=== PATIENT | male | born 1980 | race Two or more races ===

== ENCOUNTER 2017-06-05 12:06 | Inpatient (IN) | payer OTHER ==
[~2017-06-05] VITALS: Ht 175.3 cm; Wt 66.0 kg
[2017-06-05 13:33] LABS: Basophils # (auto) 0.1 uL; Basophils % (auto) 0.7 % (0.0-2.0); Eosinophils % (auto) 6.7 % (0.0-7.0); Hematocrit 44.4 % (41.0-53.0); Hemoglobin 15.2 g/dL (13.5-17.5); Lymphocytes # (auto) 1.4 uL; Lymphocytes % (auto) 9.1 % (10.0-50.0); Mean Corpuscular Hemoglobin 30.7 pg (28.0-32.0); Mean Corpuscular Hgb Conc. 34.3 g/dL (32.0-36.0); Mean Corpuscular Volume 89.3 fL (80.0-100.0); Monocytes # (auto) 1.7 uL; Monocytes % (auto) 11.6 % (0.0-12.0); Neutrophils # (auto) 10.7 uL; Neutrophils % (auto) 71.9 % (37.0-80.0); Nucleated Red Blood Cells % 0.1 %; Platelet Count (auto) 409 10^3/uL (140-450); Red Cell Distribution Width 12.5 % (11.6-16.0); White Blood Cell 14.9 10^3/uL (4.4-10.8)
[2017-06-05 13:41] LABS: Albumin 3.7 g/dL (3.4-5.0); Calcium 9.7 mg/dL (8.5-10.1); Potassium 3.9 mmol/L (3.5-5.1)
[2017-06-05 13:49] LABS: Bilirubin, Total 0.6 mg/dL (0.2-1.0); Total Protein 7.7 g/dL (6.4-8.2)
[2017-06-05] MEDS ORDERED: KETOROLAC TROMETH 30 MG/ML 1ML VIAL ONE (13:50)
[2017-06-05] MEDS ORDERED: KETOROLAC TROMETH 30 MG/ML 1ML VIAL IV ONE (14:00)
[2017-06-05] MEDS ORDERED: MORPHINE SULF INJ 2 MG/ML SYRINGE 1ML ONE (14:25)
[2017-06-05 14:35] LABS: Magnesium 2.2 mg/dL (1.6-2.6)
[2017-06-05] MEDS ORDERED: cefTRIAXone 1GM/50ML D5W 50 ML IV ONE (16:00)
[2017-06-05] MEDS ORDERED: ACETAMINOPHEN 500 MG TAB PO PRN (16:15)
[2017-06-05] MEDS ORDERED: MORPHINE SULF INJ 2 MG/ML SYRINGE 1ML IV PRN (16:15)
[2017-06-05] MEDS ORDERED: NITROGLYCERIN 0.4 MG SL TAB SL PRN (16:15)
[2017-06-05] MEDS ORDERED: LORazepam 0.5 MG TAB PO PRN (16:15)
[2017-06-05] MEDS ORDERED: IOHEXOL 300 MG/ML 100ML BOTTLE IJ ONE (16:27)
[2017-06-05 16:47] LABS: Urine RBC None Seen /hpf (0 - 3)
[2017-06-05 16:54] LABS: Urine Bilirubin Negative (Negative); Urine Blood Negative /uL (Negative); Urine Color Yellow (Yellow); Urine Glucose Normal (Normal); Urine Ketone TRACE (Negative); Urine Mucus FEW (None Seen); Urine Nitrite Negative (Negative); Urine Sperm PRESENT /hpf (None Seen); Urine Urobilinogen Normal (Negative); Urine pH 5.5 (5.0-8.0)
[2017-06-05] MEDS: SODIUM CHLORIDE 0.9% 1,000 ML IV SCH ×2 (17:02→22:46)
[2017-06-05] MEDS: FAMOTIDINE (10MG/ML) 2ML VL IV SCH (17:03)
[2017-06-05] MEDS: metroNIDAZOLE 500MG/100ML 100 ML IV SCH (18:00)
[2017-06-05 20:23] LABS: INR 1.03 (0.9-1.15); Prothrombin Time 11.2 sec (9.37-12.3)
[2017-06-05] MEDS: MORPHINE SULFATE 4 MG/ML SYRG IV PRN (20:55)
[2017-06-05] MEDS: HYDROcodone-ACET 5/325MG TAB PO PRN (23:00)
[2017-06-06] MEDS: MORPHINE SULFATE 4 MG/ML SYRG IV PRN ×4 (01:30→17:57)
[2017-06-06] MEDS: FAMOTIDINE (10MG/ML) 2ML VL IV SCH ×2 (04:36→17:57)
[2017-06-06] MEDS: PROMETHAZINE HCL 25 MG/ML 1ML IV PRN ×5 (04:41→21:41)
[2017-06-06 04:47] VITALS: BP 128/64
[2017-06-06] MEDS: SODIUM CHLORIDE 0.9% 1,000 ML IV SCH ×3 (05:26→18:46)
[2017-06-06 05:53] LABS: Albumin 2.8 g/dL (3.4-5.0); BUN/Creatinine Ratio 16.4; Bilirubin, Total 0.8 mg/dL (0.2-1.0); Calcium 9.4 mg/dL (8.5-10.1); Potassium 4.1 mmol/L (3.5-5.1); Total Protein 6.2 g/dL (6.4-8.2)
[2017-06-06] MEDS: metroNIDAZOLE 500MG/100ML 100 ML IV SCH ×5 (05:57→23:58)
[2017-06-06 06:17] LABS: Basophils # (auto) 0.1 uL; Basophils % (auto) 0.5 % (0.0-2.0); CONDITION Y; DEFINITIVE SEE PRINTOUT; Eosinophils # (auto) 0.8 uL; Eosinophils % (auto) 6.3 % (0.0-7.0); Hematocrit 37.2 % (41.0-53.0); Hemoglobin 12.8 g/dL (13.5-17.5); Lymphocytes # (auto) 1.6 uL; Lymphocytes % (auto) 12.2 % (10.0-50.0); Mean Corpuscular Hemoglobin 31.3 pg (28.0-32.0); Mean Corpuscular Hgb Conc. 34.5 g/dL (32.0-36.0); Mean Corpuscular Volume 90.6 fL (80.0-100.0); Mean Platelet Volume 7.8 fL (7.4-10.4); Monocytes # (auto) 1.3 uL; Monocytes % (auto) 9.9 % (0.0-12.0); Neutrophils # (auto) 9.6 uL; Neutrophils % (auto) 71.1 % (37.0-80.0); Platelet Count (auto) 344 10^3/uL (140-450); Red Cell Distribution Width 12.7 % (11.6-16.0); White Blood Cell 13.5 10^3/uL (4.4-10.8)
[2017-06-06] MEDS ORDERED: ACET-1156 PO (06:46)
[2017-06-06] MEDS ORDERED: AZIT250T5 PO (06:58)
[2017-06-06] MEDS ORDERED: IPRA0.03 (06:58)
[2017-06-06] MEDS ORDERED: ALBU0.084 IN (06:58)
[2017-06-06] MEDS ORDERED: RANI-229 PO (06:58)
[2017-06-06] MEDS ORDERED: ALBUAER3 IN (06:58)
[2017-06-06] MEDS ORDERED: MOME200A INH (06:58)
[2017-06-06] MEDS ORDERED: IBUP600T27 PO (06:58)
[2017-06-06] MEDS ORDERED: cefTRIAXone 1GM/50ML D5W 50 ML IV SCH (09:00)
[2017-06-06 09:01] VITALS: BP 115/80
[2017-06-06] MEDS: LEVOFLOXACIN 500MG 100 ML IV SCH (09:04)
[2017-06-06] MEDS ORDERED: GOLYTELY 4L KIT PO ONE (12:00)
[2017-06-06 13:00] VITALS: BP 122/80
[2017-06-06 17:22] VITALS: BP 124/76
[2017-06-06] MEDS: ENOXAPARIN SOD 40 MG/0.4 ML SYRINGE SC SCH (17:58)
[2017-06-06 22:00] VITALS: BP 129/73
[2017-06-07] VITALS (7 sets, daily range): BP systolic 114–136; BP diastolic 71–82
[2017-06-07] MEDS: SODIUM CHLORIDE 0.9% 1,000 ML IV SCH ×4 (01:26→21:41)
[2017-06-07] MEDS: FAMOTIDINE (10MG/ML) 2ML VL IV SCH (04:11)
[2017-06-07] MEDS: MORPHINE SULFATE 4 MG/ML SYRG IV PRN ×4 (04:35→21:35)
[2017-06-07] MEDS: metroNIDAZOLE 500MG/100ML 100 ML IV SCH ×3 (06:01→21:34)
[2017-06-07] MEDS: LEVOFLOXACIN 500MG 100 ML IV SCH (09:17)
[2017-06-07] MEDS: ENOXAPARIN SOD 40 MG/0.4 ML SYRINGE SC SCH (09:18)
[2017-06-07] MEDS ORDERED: MIDAZOLAM HCL 5 MG/ML-1ML VIAL ONE ×2 (09:36→13:21)
[2017-06-07] MEDS ORDERED: diphenhdrAMINE HCL 50 MG/1 ML VL ONE (09:36)
[2017-06-07] MEDS ORDERED: LIDOCAINE VISCOUS 2% 15ML UD ONE (09:36)
[2017-06-07] MEDS ORDERED: SODIUM CHLORIDE LOCK 10 ML ONE (09:36)
[2017-06-07] MEDS ORDERED: fentaNYL CITRATE 100 MCG/2 ML VL ONE ×2 (09:38→13:21)
[2017-06-07] MEDS ORDERED: LIDOCAINE VISCOUS 2% 15ML UD MT ONE (13:30)
[2017-06-07] MEDS ORDERED: MIDAZOLAM HCL 5 MG/ML-1ML VIAL IV ONE ×4 (13:30→13:47)
[2017-06-07] MEDS ORDERED: fentaNYL CITRATE 100 MCG/2 ML VL IV ONE ×4 (13:30→13:47)
[2017-06-07] MEDS ORDERED: diphenhdrAMINE HCL 50 MG/1 ML VL IV ONE (13:31)
[2017-06-07] MEDS: PROMETHAZINE HCL 25 MG/ML 1ML IV PRN ×2 (17:14→21:35)
[2017-06-07 19:26] LABS: Hepatitis B Surface Antibody Negative
[2017-06-07] MEDS: HYDROcodone-ACET 5/325MG TAB PO PRN (19:50)
[2017-06-08] VITALS (7 sets, daily range): BP systolic 118–134; BP diastolic 67–85
[2017-06-08] MEDS: metroNIDAZOLE 500MG/100ML 100 ML IV SCH ×4 (03:26→21:12)
[2017-06-08] MEDS: PROMETHAZINE HCL 25 MG/ML 1ML IV PRN ×4 (04:18→21:30)
[2017-06-08] MEDS: MORPHINE SULFATE 4 MG/ML SYRG IV PRN (04:18)
[2017-06-08] MEDS: SODIUM CHLORIDE 0.9% 1,000 ML IV SCH ×3 (04:40→17:37)
[2017-06-08] MEDS ORDERED: fentaNYL CITRATE 100 MCG/2 ML VL ONE (08:48)
[2017-06-08] MEDS ORDERED: MIDAZOLAM HCL 1MG/1ML-2 ML VIAL ONE (08:48)
[2017-06-08] MEDS: ENOXAPARIN SOD 40 MG/0.4 ML SYRINGE SC SCH (08:49)
[2017-06-08] MEDS ORDERED: LIDOCAINE 2%HCL (LOCAL ANESTH.) INJ 20ML MDV ONE (08:55)
[2017-06-08] MEDS ORDERED: GELATIN 1 SPONGE SIZE 50 TOP ONE (09:22)
[2017-06-08] MEDS: PANTOPRAZOLE 40 MG TAB PO SCH (10:19)
[2017-06-08] MEDS: LEVOFLOXACIN 500MG 100 ML IV SCH (10:19)
[2017-06-08] MEDS: MORPHINE SULF INJ 2 MG/ML SYRINGE 1ML IV PRN ×3 (13:42→21:30)
[2017-06-08] MEDS: DEXAMETHASONE SOD PHOS 4 MG/1ML SDV INJ IV SCH ×2 (15:00→21:30)
[2017-06-09] MEDS: SODIUM CHLORIDE 0.9% 1,000 ML IV SCH ×4 (01:16→20:29)
[2017-06-09] MEDS: metroNIDAZOLE 500MG/100ML 100 ML IV SCH ×4 (02:37→21:06)
[2017-06-09] MEDS: MORPHINE SULF INJ 2 MG/ML SYRINGE 1ML IV PRN ×3 (02:52→20:11)
[2017-06-09] MEDS: PROMETHAZINE HCL 25 MG/ML 1ML IV PRN ×3 (02:53→20:11)
[2017-06-09 05:00] VITALS: BP 120/72
[2017-06-09] MEDS: ENOXAPARIN SOD 40 MG/0.4 ML SYRINGE SC SCH (08:27)
[2017-06-09] MEDS: DEXAMETHASONE SOD PHOS 4 MG/1ML SDV INJ IV SCH ×2 (08:27→21:29)
[2017-06-09] MEDS: PANTOPRAZOLE 40 MG TAB PO SCH (08:27)
[2017-06-09] MEDS: LEVOFLOXACIN 500MG 100 ML IV SCH (08:28)
[2017-06-09 08:30] VITALS: BP 123/85
[2017-06-09 11:40] VITALS: BP 131/70
[2017-06-09 12:07] LABS: PSA Free 0.09 ng/mL; Prostate Specific Antigen 0.5 ng/mL (0.0-4.0)
[2017-06-09 16:15] VITALS: BP 118/72
[2017-06-09] MEDS: TEMAZEPAM 15 MG CAP PO PRN (21:30)
[2017-06-09 21:34] VITALS: BP 134/70
[2017-06-10] VITALS (7 sets, daily range): BP systolic 114–126; BP diastolic 65–74
[2017-06-10] MEDS: SODIUM CHLORIDE 0.9% 1,000 ML IV SCH ×4 (02:51→23:24)
[2017-06-10] MEDS: metroNIDAZOLE 500MG/100ML 100 ML IV SCH ×4 (02:51→21:42)
[2017-06-10] MEDS: MORPHINE SULF INJ 2 MG/ML SYRINGE 1ML IV PRN ×4 (03:03→20:05)
[2017-06-10] MEDS: PROMETHAZINE HCL 25 MG/ML 1ML IV PRN ×4 (03:03→20:05)
[2017-06-10 06:30] LABS: Albumin 2.6 g/dL (3.4-5.0); BUN/Creatinine Ratio 26.8; Calcium 8.8 mg/dL (8.5-10.1); Potassium 4.2 mmol/L (3.5-5.1)
[2017-06-10 06:33] LABS: Bilirubin, Total 0.3 mg/dL (0.2-1.0); Total Protein 6.3 g/dL (6.4-8.2)
[2017-06-10] MEDS: DEXAMETHASONE SOD PHOS 4 MG/1ML SDV INJ IV SCH ×2 (09:41→21:42)
[2017-06-10] MEDS: ENOXAPARIN SOD 40 MG/0.4 ML SYRINGE SC SCH (09:41)
[2017-06-10] MEDS: LEVOFLOXACIN 500MG 100 ML IV SCH (09:41)
[2017-06-10] MEDS: PANTOPRAZOLE 40 MG TAB PO SCH (09:41)
[2017-06-10] MEDS ORDERED: GADOPENTETATE DIMEGLUMINE (10MMOL/20 ML) VIAL IV ONE (12:30)
[2017-06-11] MEDS: PROMETHAZINE HCL 25 MG/ML 1ML IV PRN ×4 (00:04→16:49)
[2017-06-11] MEDS: MORPHINE SULF INJ 2 MG/ML SYRINGE 1ML IV PRN ×4 (00:05→16:50)
[2017-06-11] MEDS: metroNIDAZOLE 500MG/100ML 100 ML IV SCH ×4 (02:42→20:57)
[2017-06-11] MEDS: SODIUM CHLORIDE 0.9% 1,000 ML IV SCH ×4 (05:26→23:20)
[2017-06-11 05:30] VITALS: BP 114/66
[2017-06-11 06:31] LABS: Basophils # (auto) 0 uL; Basophils % (auto) 0.1 % (0.0-2.0); Eosinophils # (auto) 0 uL; Lymphocytes # (auto) 0.7 uL; Lymphocytes % (auto) 3.4 % (10.0-50.0); Mean Corpuscular Hemoglobin 30.5 pg (28.0-32.0); Mean Corpuscular Hgb Conc. 34.3 g/dL (32.0-36.0); Mean Corpuscular Volume 88.8 fL (80.0-100.0); Mean Platelet Volume 7.6 fL (6.9-10.8); Monocytes # (auto) 0.6 uL; Monocytes % (auto) 2.8 % (0.0-12.0); Neutrophils # (auto) 19.5 uL; Neutrophils % (auto) 93.7 % (37.0-80.0); Platelet Count (auto) 388 10^3/uL (140-450); Red Cell Distribution Width 12.7 % (11.8-14.3); White Blood Cell 20.8 10^3/uL (4.4-10.8)
[2017-06-11 06:40] LABS: Potassium 4.2 mmol/L (3.5-5.1)
[2017-06-11 06:42] LABS: BUN/Creatinine Ratio 28.3; Calcium 8.6 mg/dL (8.5-10.1)
[2017-06-11 08:00] VITALS: BP 154/82
[2017-06-11 08:04] VITALS: BP 154/82
[2017-06-11] MEDS: DEXAMETHASONE SOD PHOS 4 MG/1ML SDV INJ IV SCH ×2 (10:07→21:39)
[2017-06-11] MEDS: PANTOPRAZOLE 40 MG TAB PO SCH (10:07)
[2017-06-11] MEDS: LEVOFLOXACIN 500MG 100 ML IV SCH (10:07)
[2017-06-11] MEDS: ENOXAPARIN SOD 40 MG/0.4 ML SYRINGE SC SCH (10:07)
[2017-06-11 14:22] VITALS: BP 122/79
[2017-06-11 16:31] VITALS: BP 115/48
[2017-06-11] MEDS: MORPHINE SULF 30 mg ER tab PO SCH (21:40)
[2017-06-11 21:44] VITALS: BP 114/66
[2017-06-12] MEDS: metroNIDAZOLE 500MG/100ML 100 ML IV SCH ×4 (03:16→21:29)
[2017-06-12 05:00] VITALS: BP 105/59
[2017-06-12] MEDS: MORPHINE SULF 30 mg ER tab PO SCH ×3 (06:10→21:29)
[2017-06-12 07:57] VITALS: BP 128/65
[2017-06-12] MEDS: MORPHINE SULF INJ 2 MG/ML SYRINGE 1ML IV PRN ×4 (08:18→22:19)
[2017-06-12] MEDS: PROMETHAZINE HCL 25 MG/ML 1ML IV PRN ×4 (08:29→22:18)
[2017-06-12] MEDS: DEXAMETHASONE SOD PHOS 4 MG/1ML SDV INJ IV SCH ×2 (10:23→21:29)
[2017-06-12] MEDS: ENOXAPARIN SOD 40 MG/0.4 ML SYRINGE SC SCH (10:23)
[2017-06-12] MEDS: PANTOPRAZOLE 40 MG TAB PO SCH (10:23)
[2017-06-12] MEDS: LEVOFLOXACIN 500MG 100 ML IV SCH (10:23)
[2017-06-12] MEDS: SODIUM CHLORIDE 0.9% 1,000 ML IV SCH ×3 (11:00→21:26)
[2017-06-12 11:28] VITALS: BP 112/67
[2017-06-12 16:31] VITALS: BP 119/73
[2017-06-12 20:00] VITALS: BP 142/66
[2017-06-12 22:00] VITALS: BP 142/66
[2017-06-13] MEDS: SODIUM CHLORIDE 0.9% 1,000 ML IV SCH (00:37)
[2017-06-13] MEDS: metroNIDAZOLE 500MG/100ML 100 ML IV SCH ×2 (02:57→09:03)
[2017-06-13] MEDS: PROMETHAZINE HCL 25 MG/ML 1ML IV PRN ×4 (03:31→20:35)
[2017-06-13] MEDS: MORPHINE SULF INJ 2 MG/ML SYRINGE 1ML IV PRN ×4 (03:32→20:35)
[2017-06-13 05:00] VITALS: BP 114/68
[2017-06-13] MEDS: MORPHINE SULF 30 mg ER tab PO SCH ×3 (05:59→23:07)
[2017-06-13 09:02] VITALS: BP 122/76
[2017-06-13 10:24] LABS: INR 1.1 (0.9-1.15); Partial Thromboplastin Time 28.7 sec (22.64-33.71)
[2017-06-13] MEDS: ENOXAPARIN SOD 40 MG/0.4 ML SYRINGE SC SCH (10:42)
[2017-06-13] MEDS: PANTOPRAZOLE 40 MG TAB PO SCH (10:42)
[2017-06-13] MEDS: DEXAMETHASONE SOD PHOS 4 MG/1ML SDV INJ IV SCH ×2 (10:42→23:08)
[2017-06-13 13:00] VITALS: BP 116/72
[2017-06-13 16:13] VITALS: BP 121/79
[2017-06-13 20:00] VITALS: BP 124/73
[2017-06-13 22:00] VITALS: BP 124/73
[2017-06-14] VITALS (7 sets, daily range): BP systolic 111–123; BP diastolic 65–78
[2017-06-14] MEDS: MORPHINE SULF INJ 2 MG/ML SYRINGE 1ML IV PRN ×5 (03:58→23:38)
[2017-06-14] MEDS: PROMETHAZINE HCL 25 MG/ML 1ML IV PRN ×5 (03:59→23:38)
[2017-06-14] MEDS: MORPHINE SULF 30 mg ER tab PO SCH ×3 (05:39→21:56)
[2017-06-14] MEDS: ENOXAPARIN SOD 40 MG/0.4 ML SYRINGE SC SCH (09:20)
[2017-06-14] MEDS: DEXAMETHASONE SOD PHOS 4 MG/1ML SDV INJ IV SCH ×2 (09:23→21:56)
[2017-06-14] MEDS: PANTOPRAZOLE 40 MG TAB PO SCH (09:23)
[2017-06-15] MEDS: PROMETHAZINE HCL 25 MG/ML 1ML IV PRN ×4 (04:10→23:21)
[2017-06-15] MEDS: MORPHINE SULF INJ 2 MG/ML SYRINGE 1ML IV PRN ×2 (04:11→12:42)
[2017-06-15 05:00] VITALS: BP 115/73
[2017-06-15] MEDS: MORPHINE SULF 30 mg ER tab PO SCH (05:32)
[2017-06-15 05:38] LABS: Basophils # (auto) 0 uL; Basophils % (auto) 0.2 % (0.0-2.0); Eosinophils # (auto) 0.1 uL; Eosinophils % (auto) 0.3 % (0.0-7.0); Hematocrit 45.2 % (41.0-53.0); Hemoglobin 15.8 g/dL (13.5-17.5); Lymphocytes # (auto) 0.7 uL; Lymphocytes % (auto) 3.6 % (10.0-50.0); Mean Corpuscular Hemoglobin 30.9 pg (28.0-32.0); Mean Corpuscular Hgb Conc. 34.9 g/dL (32.0-36.0); Mean Corpuscular Volume 88.4 fL (80.0-100.0); Mean Platelet Volume 7.6 fL (6.9-10.8); Monocytes # (auto) 1.1 uL; Monocytes % (auto) 5.3 % (0.0-12.0); Neutrophils # (auto) 18.4 uL; Neutrophils % (auto) 90.6 % (37.0-80.0); Nucleated Red Blood Cells % 0.1 %; Platelet Count (auto) 462 10^3/uL (140-450); White Blood Cell 20.3 10^3/uL (4.4-10.8)
[2017-06-15 05:55] LABS: INR 1.07 (0.9-1.15); Partial Thromboplastin Time 28.2 sec (22.64-33.71); Prothrombin Time 11.7 sec (9.37-12.3)
[2017-06-15 06:14] LABS: BUN/Creatinine Ratio 37.5; Calcium 10.7 mg/dL (8.5-10.1); Potassium 4.2 mmol/L (3.5-5.1)
[2017-06-15] MEDS ORDERED: ceFAZolin 1GM VL ONE (08:59)
[2017-06-15] MEDS ORDERED: HEPARIN SODIUM (PORCINE) 5000 UNITS/ML 1ML VIAL ONE (09:00)
[2017-06-15] MEDS ORDERED: LIDOCAINE 1% HCL (LOCAL ANESTH.) INJ 20ML MDV ONE (09:00)
[2017-06-15] MEDS ORDERED: HEPARIN 1,000 UNITS/ml 1ML VIAL ONE (09:00)
[2017-06-15 09:01] VITALS: BP 129/83
[2017-06-15] MEDS: PANTOPRAZOLE 40 MG TAB PO SCH (09:11)
[2017-06-15] MEDS: DEXAMETHASONE SOD PHOS 4 MG/1ML SDV INJ IV SCH ×2 (09:12→21:52)
[2017-06-15] MEDS: ENOXAPARIN SOD 40 MG/0.4 ML SYRINGE SC SCH ×2 (09:12→09:42)
[2017-06-15] MEDS ORDERED: ceFAZolin 1GM/50ML 50 ML IV ONE (09:38)
[2017-06-15] MEDS ORDERED: fentaNYL CITRATE 100 MCG/2 ML VL ONE (10:08)
[2017-06-15] MEDS ORDERED: MEPERIDINE HCL (50 MG/ML) 1 ML VIAL ONE (10:09)
[2017-06-15] MEDS ORDERED: MIDAZOLAM HCL 1MG/1ML-2 ML VIAL ONE (10:09)
[2017-06-15] MEDS ORDERED: DEXAMETHASONE SOD PHOS 10MG/1ML VIAL INJ ONE (10:10)
[2017-06-15] MEDS ORDERED: MIDAZOLAM HCL 1MG/1ML-2 ML VIAL IV PRN (11:00)
[2017-06-15] MEDS ORDERED: LABETALOL HCL 5 MG/ML 4ML SYRINGE IV PRN (11:00)
[2017-06-15] MEDS ORDERED: ePHEDrine SULFATE 50 MG/ML AMP IV PRN (11:00)
[2017-06-15] MEDS ORDERED: MORPHINE SULF INJ 2 MG/ML SYRINGE 1ML IV PRN (11:00)
[2017-06-15] MEDS ORDERED: HYDROmorphone HCL 2 MG/ML VL IV PRN (11:00)
[2017-06-15] MEDS ORDERED: ONDANSETRON HCL 4 MG/2 ML VIAL IV ONE (11:00)
[2017-06-15] MEDS ORDERED: hydrALAZINE HCL 20 MG/ML VL IV PRN (11:00)
[2017-06-15] MEDS ORDERED: KETOROLAC TROMETH 30 MG/ML 1ML VIAL IV ONE (11:00)
[2017-06-15] MEDS: IPRATROPIUM BROM 0.5 MG/2.5ML INH SOL NEB ONE ×2 (11:04→11:27)
[2017-06-15] MEDS: ALBUTEROL SULF 2.5 MG/0.5ML(0.5%) NEB SOLN NEB ONE ×2 (11:04→11:27)
[2017-06-15] MEDS: IPRATROPIUM BROM 0.5 MG/2.5ML INH SOL ONE ×2 (11:06→11:28)
[2017-06-15] MEDS: ALBUTEROL SULF 2.5 MG/0.5ML(0.5%) NEB SOLN ONE ×2 (11:06→11:27)
[2017-06-15 12:30] VITALS: BP 117/78
[2017-06-15] MEDS: HYDROmorphone HCL 2 MG/ML VL IV PRN ×4 (15:16→23:21)
[2017-06-15 17:21] VITALS: BP 130/79
[2017-06-15 21:33] VITALS: BP 122/84
[2017-06-16] MEDS: HYDROmorphone HCL 2 MG/ML VL IV PRN ×5 (03:17→23:48)
[2017-06-16] MEDS: PROMETHAZINE HCL 25 MG/ML 1ML IV PRN ×5 (03:17→23:48)
[2017-06-16 05:00] VITALS: BP 123/75
[2017-06-16 08:00] VITALS: BP 123/82
[2017-06-16 08:37] VITALS: BP 123/82
[2017-06-16 13:12] VITALS: BP 128/78
[2017-06-16] MEDS: DEXAMETHASONE SOD PHOS 4 MG/1ML SDV INJ IV SCH ×2 (14:14→22:45)
[2017-06-16] MEDS: ENOXAPARIN SOD 40 MG/0.4 ML SYRINGE SC SCH (14:15)
[2017-06-16] MEDS: PANTOPRAZOLE 40 MG TAB PO SCH (14:15)
[2017-06-16 16:45] VITALS: BP 132/70
[2017-06-16] MEDS: HYDROcodone-ACET 5/325MG TAB PO PRN (17:11)
[2017-06-16] MEDS: TEMAZEPAM 15 MG CAP PO PRN (22:58)
[2017-06-16 23:09] VITALS: BP 115/81
[2017-06-17] MEDS: HYDROcodone-ACET 5/325MG TAB PO PRN ×2 (03:18→15:41)
[2017-06-17] MEDS: PROMETHAZINE HCL 25 MG/ML 1ML IV PRN ×4 (04:19→20:26)
[2017-06-17] MEDS: HYDROmorphone HCL 2 MG/ML VL IV PRN ×5 (04:20→20:27)
[2017-06-17 05:00] VITALS: BP 112/75
[2017-06-17 08:00] VITALS: BP 116/79
[2017-06-17 08:22] VITALS: BP 116/79
[2017-06-17] MEDS: DEXAMETHASONE SOD PHOS 4 MG/1ML SDV INJ IV SCH ×2 (10:00→21:50)
[2017-06-17] MEDS: PANTOPRAZOLE 40 MG TAB PO SCH (10:08)
[2017-06-17] MEDS: ENOXAPARIN SOD 40 MG/0.4 ML SYRINGE SC SCH (10:08)
[2017-06-17] MEDS ORDERED: ONDANSETRON HCL 8 MG in D5W 5% 50 ML IV ONE ×2 (10:30→13:45)
[2017-06-17] MEDS ORDERED: DEXAMETHASONE IV ONE (10:45)
[2017-06-17] MEDS ORDERED: D5W 5% IV ONE ×4 (10:45→11:00)
[2017-06-17] MEDS ORDERED: IRINOTECAN HYDROCHLORIDE IV ONE (11:00)
[2017-06-17] MEDS ORDERED: LEUCOVORIN CALCIUM IV ONE (11:00)
[2017-06-17] MEDS ORDERED: FLUOROURACIL IV ONE (11:00)
[2017-06-17] MEDS ORDERED: ATROPINE SULF 0.5 MG/5ML SYR IV PRN (11:00)
[2017-06-17] MEDS ORDERED: OXALIPLATIN IV ONE (11:00)
[2017-06-17] MEDS: D5W 5% IV SCH (12:00)
[2017-06-17] MEDS: FLUOROURACIL IV SCH (12:00)
[2017-06-17 16:26] VITALS: BP 150/85
[2017-06-17] MEDS: fentaNYL 50MCG/HR 50 MCG/HR PAT TD SCH (20:28)
[2017-06-17 22:00] VITALS: BP 127/81
[2017-06-18] MEDS: HYDROmorphone HCL 2 MG/ML VL IV PRN ×7 (00:22→21:46)
[2017-06-18] MEDS: PROMETHAZINE HCL 25 MG/ML 1ML IV PRN ×6 (00:28→21:39)
[2017-06-18 05:00] VITALS: BP 135/77
[2017-06-18 07:50] VITALS: BP 127/76
[2017-06-18] MEDS: HYDROcodone-ACET 5/325MG TAB PO PRN (08:14)
[2017-06-18] MEDS: PANTOPRAZOLE 40 MG TAB PO SCH (10:00)
[2017-06-18] MEDS: PRO-STAT 64 30ML PO SCH ×2 (10:00→21:47)
[2017-06-18] MEDS: ENOXAPARIN SOD 40 MG/0.4 ML SYRINGE SC SCH (10:00)
[2017-06-18] MEDS: DEXAMETHASONE SOD PHOS 4 MG/1ML SDV INJ IV SCH ×2 (10:34→21:39)
[2017-06-18 11:49] VITALS: BP 137/69
[2017-06-18] MEDS: FLUOROURACIL IV SCH (13:20)
[2017-06-18] MEDS: D5W 5% IV SCH (13:20)
[2017-06-18] MEDS: BOOST PLUS 8 ounce PO SCH ×2 (14:00→21:47)
[2017-06-18 16:28] VITALS: BP 137/86
[2017-06-18 21:13] VITALS: BP 136/89
[2017-06-19] MEDS: HYDROmorphone HCL 2 MG/ML VL IV PRN ×5 (02:00→19:53)
[2017-06-19] MEDS: PROMETHAZINE HCL 25 MG/ML 1ML IV PRN ×4 (02:00→19:53)
[2017-06-19 05:00] VITALS: BP 127/75
[2017-06-19] MEDS: BOOST PLUS 8 ounce PO SCH ×3 (06:34→22:29)
[2017-06-19 08:00] VITALS: BP 127/75
[2017-06-19 09:00] VITALS: BP 158/80
[2017-06-19] MEDS: DEXAMETHASONE SOD PHOS 4 MG/1ML SDV INJ IV SCH ×2 (09:35→22:34)
[2017-06-19] MEDS: PANTOPRAZOLE 40 MG TAB PO SCH (09:35)
[2017-06-19] MEDS: PRO-STAT 64 30ML PO SCH ×2 (09:35→22:29)
[2017-06-19] MEDS: ENOXAPARIN SOD 40 MG/0.4 ML SYRINGE SC SCH (09:35)
[2017-06-19 13:00] VITALS: BP 123/85
[2017-06-19 17:33] VITALS: BP 124/82
[2017-06-19 21:13] VITALS: BP 152/71
[2017-06-19] MEDS: HYDROcodone-ACET 5/325MG TAB PO PRN (22:34)
[2017-06-20] MEDS: PROMETHAZINE HCL 25 MG/ML 1ML IV PRN ×5 (00:17→19:24)
[2017-06-20] MEDS: HYDROmorphone HCL 2 MG/ML VL IV PRN ×7 (00:18→22:52)
[2017-06-20 04:34] VITALS: BP 128/81
[2017-06-20] MEDS: BOOST PLUS 8 ounce PO SCH ×3 (05:20→22:00)
[2017-06-20 05:40] LABS: Basophils # (auto) 0 uL; Basophils % (auto) 0.1 % (0.0-2.0); Eosinophils # (auto) 0 uL; Eosinophils % (auto) 0.2 % (0.0-7.0); Hematocrit 43.8 % (41.0-53.0); Hemoglobin 15.3 g/dL (13.5-17.5); Lymphocytes # (auto) 0.7 uL; Lymphocytes % (auto) 3.6 % (10.0-50.0); Mean Corpuscular Hgb Conc. 34.9 g/dL (32.0-36.0); Mean Corpuscular Volume 88.9 fL (80.0-100.0); Monocytes # (auto) 0.4 uL; Neutrophils % (auto) 94.1 % (37.0-80.0); Platelet Count (auto) 423 10^3/uL (140-450); Red Cell Distribution Width 13.2 % (11.8-14.3); White Blood Cell 20.2 10^3/uL (4.4-10.8)
[2017-06-20 06:14] LABS: Calcium 9.8 mg/dL (8.5-10.1); Potassium 4.4 mmol/L (3.5-5.1)
[2017-06-20 08:00] VITALS: BP 124/88
[2017-06-20 09:00] VITALS: BP 124/88
[2017-06-20] MEDS: PANTOPRAZOLE 40 MG TAB PO SCH (09:05)
[2017-06-20] MEDS: ENOXAPARIN SOD 40 MG/0.4 ML SYRINGE SC SCH (09:05)
[2017-06-20] MEDS: PRO-STAT 64 30ML PO SCH ×2 (09:05→22:00)
[2017-06-20] MEDS: DEXAMETHASONE SOD PHOS 4 MG/1ML SDV INJ IV SCH ×2 (11:49→22:52)
[2017-06-20 12:00] VITALS: BP 127/78
[2017-06-20 17:13] VITALS: BP 121/79
[2017-06-20] MEDS: fentaNYL 50MCG/HR 50 MCG/HR PAT TD SCH ×2 (17:26→17:45)
[2017-06-20 22:00] VITALS: BP 123/77
[2017-06-21] MEDS: HYDROmorphone HCL 2 MG/ML VL IV PRN ×6 (02:36→22:13)
[2017-06-21] MEDS: PROMETHAZINE HCL 25 MG/ML 1ML IV PRN ×5 (02:36→22:13)
[2017-06-21 05:00] VITALS: BP 111/79
[2017-06-21] MEDS: BOOST PLUS 8 ounce PO SCH ×3 (07:54→22:13)
[2017-06-21 09:19] VITALS: BP 130/73
[2017-06-21] MEDS: PRO-STAT 64 30ML PO SCH ×2 (09:42→22:13)
[2017-06-21] MEDS: DEXAMETHASONE SOD PHOS 4 MG/1ML SDV INJ IV SCH ×2 (09:56→22:13)
[2017-06-21] MEDS: ENOXAPARIN SOD 40 MG/0.4 ML SYRINGE SC SCH (09:56)
[2017-06-21] MEDS: PANTOPRAZOLE 40 MG TAB PO SCH (09:56)
[2017-06-21 13:00] VITALS: BP 125/78
[2017-06-21 16:49] VITALS: BP 127/81
[2017-06-21] MEDS: THROAT LOZENGES(CEPASTAT) MT PRN (18:56)
[2017-06-21 21:34] VITALS: BP 129/79
[2017-06-22] MEDS: HYDROmorphone HCL 2 MG/ML VL IV PRN ×6 (01:27→21:26)
[2017-06-22 05:00] VITALS: BP 123/79
[2017-06-22] MEDS: BOOST PLUS 8 ounce PO SCH ×3 (06:03→21:26)
[2017-06-22] MEDS: PROMETHAZINE HCL 25 MG/ML 1ML IV PRN ×4 (06:11→21:26)
[2017-06-22 07:48] VITALS: BP 124/78
[2017-06-22] MEDS: PANTOPRAZOLE 40 MG TAB PO SCH (09:55)
[2017-06-22] MEDS: DEXAMETHASONE SOD PHOS 4 MG/1ML SDV INJ IV SCH ×2 (09:55→21:25)
[2017-06-22] MEDS: PRO-STAT 64 30ML PO SCH ×2 (11:45→21:26)
[2017-06-22 12:00] VITALS: BP 130/93
[2017-06-22 16:47] VITALS: BP 129/75
[2017-06-22] MEDS: ZOLPIDEM TARTRATE 5 MG TAB PO PRN (21:26)
[2017-06-22 22:00] VITALS: BP 124/87
[2017-06-23] MEDS: HYDROmorphone HCL 2 MG/ML VL IV PRN ×6 (00:57→20:31)
[2017-06-23 05:00] VITALS: BP 118/75
[2017-06-23] MEDS: PROMETHAZINE HCL 25 MG/ML 1ML IV PRN ×4 (05:17→16:51)
[2017-06-23] MEDS: BOOST PLUS 8 ounce PO SCH ×3 (05:17→22:00)
[2017-06-23 09:00] VITALS: BP 150/91
[2017-06-23] MEDS: PRO-STAT 64 30ML PO SCH ×2 (09:29→22:00)
[2017-06-23] MEDS: DEXAMETHASONE SOD PHOS 4 MG/1ML SDV INJ IV SCH ×2 (09:29→22:26)
[2017-06-23] MEDS: PANTOPRAZOLE 40 MG TAB PO SCH (09:29)
[2017-06-23 13:00] VITALS: BP 122/71
[2017-06-23] MEDS ORDERED: ENOXAPARIN SOD 40 MG/0.4 ML SYRINGE SC ONE (13:15)
[2017-06-23] MEDS: fentaNYL 50MCG/HR 50 MCG/HR PAT TD SCH (16:50)
[2017-06-23 16:57] VITALS: BP 115/79
[2017-06-23 21:34] VITALS: BP 123/77
[2017-06-23] MEDS: ZOLPIDEM TARTRATE 5 MG TAB PO PRN (22:26)
[2017-06-24] MEDS: HYDROmorphone HCL 2 MG/ML VL IV PRN ×5 (00:09→21:35)
[2017-06-24 05:08] VITALS: BP 134/81
[2017-06-24] MEDS: BOOST PLUS 8 ounce PO SCH ×3 (06:00→21:44)
[2017-06-24 09:00] VITALS: BP 135/80
[2017-06-24] MEDS: PRO-STAT 64 30ML PO SCH ×2 (09:03→21:44)
[2017-06-24] MEDS: DEXAMETHASONE SOD PHOS 4 MG/1ML SDV INJ IV SCH ×2 (09:05→21:33)
[2017-06-24] MEDS: PANTOPRAZOLE 40 MG TAB PO SCH (09:06)
[2017-06-24] MEDS: ONDANSETRON HCL 4 MG/2 ML VIAL IV PRN ×3 (09:51→19:55)
[2017-06-24] MEDS ORDERED: ENOXAPARIN SOD 40 MG/0.4 ML SYRINGE SC SCH (10:00)
[2017-06-24 10:05] LABS: Basophils # (auto) 0 uL; Basophils % (auto) 0.1 % (0.0-2.0); Eosinophils # (auto) 0.1 uL; Eosinophils % (auto) 0.7 % (0.0-7.0); Hematocrit 40.2 % (41.0-53.0); Lymphocytes # (auto) 0.7 uL; Lymphocytes % (auto) 7.1 % (10.0-50.0); Mean Corpuscular Hemoglobin 30.6 pg (28.0-32.0); Mean Corpuscular Hgb Conc. 34.8 g/dL (32.0-36.0); Mean Corpuscular Volume 87.8 fL (80.0-100.0); Mean Platelet Volume 7.5 fL (6.9-10.8); Monocytes # (auto) 0.3 uL; Monocytes % (auto) 2.9 % (0.0-12.0); Neutrophils # (auto) 9.4 uL; Neutrophils % (auto) 89.2 % (37.0-80.0); Platelet Count (auto) 284 10^3/uL (140-450); Red Cell Distribution Width 12.8 % (11.8-14.3); White Blood Cell 10.5 10^3/uL (4.4-10.8)
[2017-06-24 10:14] LABS: Albumin 3.2 g/dL (3.4-5.0); BUN/Creatinine Ratio 46.9; Calcium 9.1 mg/dL (8.5-10.1); Potassium 4.1 mmol/L (3.5-5.1); Total Protein 7.2 g/dL (6.4-8.2)
[2017-06-24 13:00] VITALS: BP 133/77
[2017-06-24 17:00] VITALS: BP 128/78
[2017-06-24] MEDS: ZOLPIDEM TARTRATE 5 MG TAB PO PRN (21:35)
[2017-06-24 22:30] VITALS: BP 124/72
[2017-06-25] MEDS: ONDANSETRON HCL 4 MG/2 ML VIAL IV PRN ×5 (00:18→18:55)
[2017-06-25] MEDS: HYDROmorphone HCL 2 MG/ML VL IV PRN ×3 (00:18→07:02)
[2017-06-25 05:18] VITALS: BP 136/91
[2017-06-25] MEDS: BOOST PLUS 8 ounce PO SCH ×3 (05:22→22:00)
[2017-06-25 06:18] LABS: BUN/Creatinine Ratio 39.1; Calcium 9.2 mg/dL (8.5-10.1); Potassium 4.7 mmol/L (3.5-5.1)
[2017-06-25 10:00] VITALS: BP 129/82
[2017-06-25] MEDS: DEXAMETHASONE SOD PHOS 4 MG/1ML SDV INJ IV SCH ×2 (10:00→22:44)
[2017-06-25] MEDS: PANTOPRAZOLE 40 MG TAB PO SCH (10:00)
[2017-06-25] MEDS: PRO-STAT 64 30ML PO SCH ×2 (10:00→22:00)
[2017-06-25 12:23] VITALS: BP 124/76
[2017-06-25] MEDS: MORPHINE SULF INJ 2 MG/ML SYRINGE 1ML IV PRN ×3 (14:12→20:34)
[2017-06-25 17:00] VITALS: BP 123/82
[2017-06-25 20:00] VITALS: BP 129/76
[2017-06-25 21:13] VITALS: BP 129/76
[2017-06-25] MEDS: PROMETHAZINE HCL 25 MG/ML 1ML IV PRN (22:45)
[2017-06-25] MEDS: ZOLPIDEM TARTRATE 5 MG TAB PO PRN (22:45)
[2017-06-26] VITALS (7 sets, daily range): BP systolic 114–120; BP diastolic 8–78
[2017-06-26] MEDS: MORPHINE SULF INJ 2 MG/ML SYRINGE 1ML IV PRN ×5 (00:57→22:44)
[2017-06-26] MEDS: BOOST PLUS 8 ounce PO SCH ×3 (06:42→22:44)
[2017-06-26] MEDS: DEXAMETHASONE SOD PHOS 4 MG/1ML SDV INJ IV SCH ×2 (09:19→21:46)
[2017-06-26] MEDS: PANTOPRAZOLE 40 MG TAB PO SCH (09:20)
[2017-06-26] MEDS: PRO-STAT 64 30ML PO SCH ×2 (10:39→22:44)
[2017-06-26] MEDS: fentaNYL 50MCG/HR 50 MCG/HR PAT TD SCH (16:42)
[2017-06-26 21:11] LABS: Basophils # (auto) 0 uL; Eosinophils # (auto) 0.1 uL; Eosinophils % (auto) 1.4 % (0.0-7.0); Hematocrit 39.8 % (41.0-53.0); Hemoglobin 13.9 g/dL (13.5-17.5); Lymphocytes # (auto) 0.9 uL; Lymphocytes % (auto) 8.7 % (10.0-50.0); Mean Corpuscular Hemoglobin 30.6 pg (28.0-32.0); Mean Corpuscular Hgb Conc. 34.8 g/dL (32.0-36.0); Mean Corpuscular Volume 87.8 fL (80.0-100.0); Mean Platelet Volume 7.8 fL (6.9-10.8); Monocytes # (auto) 0.3 uL; Monocytes % (auto) 2.7 % (0.0-12.0); Neutrophils # (auto) 9.2 uL; Neutrophils % (auto) 87.2 % (37.0-80.0); Platelet Count (auto) 258 10^3/uL (140-450); Red Cell Distribution Width 12.6 % (11.8-14.3); White Blood Cell 10.6 10^3/uL (4.4-10.8)
[2017-06-26 21:23] LABS: INR 1.07 (0.9-1.15); Prothrombin Time 11.7 sec (9.37-12.3)
[2017-06-26] MEDS: ZOLPIDEM TARTRATE 5 MG TAB PO PRN (21:45)
[2017-06-27 05:08] VITALS: BP 120/68
[2017-06-27] MEDS: BOOST PLUS 8 ounce PO SCH ×3 (07:35→21:03)
[2017-06-27 09:11] VITALS: BP 120/77
[2017-06-27] MEDS: PRO-STAT 64 30ML PO SCH ×2 (10:00→21:04)
[2017-06-27] MEDS: DEXAMETHASONE 4 MG TAB PO SCH (10:50)
[2017-06-27] MEDS: MORPHINE SULF INJ 2 MG/ML SYRINGE 1ML IV PRN ×2 (12:38→20:49)
[2017-06-27 17:41] VITALS: BP 125/70
[2017-06-27] MEDS: ZOLPIDEM TARTRATE 5 MG TAB PO PRN (21:02)
[2017-06-27 22:00] VITALS: BP 134/70
[2017-06-28 04:50] VITALS: BP 124/71
[2017-06-28] MEDS: MORPHINE SULF INJ 2 MG/ML SYRINGE 1ML IV PRN ×5 (04:59→23:11)
[2017-06-28] MEDS: BOOST PLUS 8 ounce PO SCH ×3 (06:02→21:28)
[2017-06-28 08:00] VITALS: BP 133/77
[2017-06-28 09:13] VITALS: BP 133/77
[2017-06-28] MEDS: PRO-STAT 64 30ML PO SCH ×2 (10:31→21:28)
[2017-06-28] MEDS: DEXAMETHASONE 4 MG TAB PO SCH (10:31)
[2017-06-28 11:38] VITALS: BP 121/75
[2017-06-28 15:14] LABS: Basophils # (auto) 0 uL; Basophils % (auto) 0.1 % (0.0-2.0); Eosinophils # (auto) 0.2 uL; Eosinophils % (auto) 1.5 % (0.0-7.0); Hematocrit 36.8 % (41.0-53.0); Hemoglobin 13.2 g/dL (13.5-17.5); Lymphocytes # (auto) 0.8 uL; Lymphocytes % (auto) 5.5 % (10.0-50.0); Mean Corpuscular Hemoglobin 31.2 pg (28.0-32.0); Mean Corpuscular Volume 86.7 fL (80.0-100.0); Mean Platelet Volume 6.8 fL (6.9-10.8); Monocytes # (auto) 0.4 uL; Monocytes % (auto) 2.5 % (0.0-12.0); Neutrophils # (auto) 13.2 uL; Neutrophils % (auto) 90.4 % (37.0-80.0); Nucleated Red Blood Cells % 0.1 %; Platelet Count (auto) 246 10^3/uL (140-450); Red Cell Distribution Width 12.7 % (11.8-14.3); White Blood Cell 14.6 10^3/uL (4.4-10.8)
[2017-06-28 15:33] LABS: Albumin 2.9 g/dL (3.4-5.0); BUN/Creatinine Ratio 57.5; Bilirubin, Total 0.7 mg/dL (0.2-1.0); Calcium 8.9 mg/dL (8.5-10.1); Potassium 4.2 mmol/L (3.5-5.1); Total Protein 6.7 g/dL (6.4-8.2)
[2017-06-28 16:57] VITALS: BP 126/70
[2017-06-28 20:18] VITALS: BP 122/74
[2017-06-28] MEDS: ZOLPIDEM TARTRATE 5 MG TAB PO PRN (21:28)
[2017-06-29] VITALS (7 sets, daily range): BP systolic 115–136; BP diastolic 70–77
[2017-06-29] MEDS: MORPHINE SULF INJ 2 MG/ML SYRINGE 1ML IV PRN ×4 (03:39→18:02)
[2017-06-29] MEDS: BOOST PLUS 8 ounce PO SCH ×3 (05:46→21:50)
[2017-06-29] MEDS: DEXAMETHASONE 4 MG TAB PO SCH (08:57)
[2017-06-29] MEDS: PRO-STAT 64 30ML PO SCH ×2 (09:00→21:50)
[2017-06-29] MEDS ORDERED: LEVOFLOXACIN 500 MG TAB PO ONE (09:15)
[2017-06-29] MEDS ORDERED: PROMETHAZINE W/CODEINE 5 ML ORAL SYRUP PO PRN (09:15)
[2017-06-29] MEDS ORDERED: FUROSEMIDE 20 MG/2 ML VIAL IV ONE (09:15)
[2017-06-29] MEDS ORDERED: POTASSIUM CHL 10 Meq TABLET PO ONE (09:15)
[2017-06-29] MEDS ORDERED: ALBUTEROL SULF 2.5 MG/0.5ML(0.5%) NEB SOLN NEB PRN (09:15)
[2017-06-29] MEDS: MORPHINE SULF 30 mg ER tab PO SCH ×2 (14:55→21:50)
[2017-06-29] MEDS: fentaNYL 50MCG/HR 50 MCG/HR PAT TD SCH (18:02)
[2017-06-29] MEDS: ZOLPIDEM TARTRATE 5 MG TAB PO PRN (21:51)
[2017-06-30] VITALS (7 sets, daily range): BP systolic 113–136; BP diastolic 67–77
[2017-06-30] MEDS: MORPHINE SULF INJ 2 MG/ML SYRINGE 1ML IV PRN ×4 (03:06→22:15)
[2017-06-30 05:41] LABS: Basophils # (auto) 0 uL; Eosinophils # (auto) 0.1 uL; Eosinophils % (auto) 0.5 % (0.0-7.0); Hematocrit 39.5 % (41.0-53.0); Hemoglobin 14.1 g/dL (13.5-17.5); Lymphocytes # (auto) 0.9 uL; Lymphocytes % (auto) 6.9 % (10.0-50.0); Mean Corpuscular Hemoglobin 30.9 pg (28.0-32.0); Mean Corpuscular Hgb Conc. 35.6 g/dL (32.0-36.0); Mean Corpuscular Volume 86.8 fL (80.0-100.0); Mean Platelet Volume 6.8 fL (6.9-10.8); Monocytes # (auto) 0.4 uL; Monocytes % (auto) 3.1 % (0.0-12.0); Neutrophils % (auto) 89.5 % (37.0-80.0); Platelet Count (auto) 278 10^3/uL (140-450); Red Cell Distribution Width 12.8 % (11.8-14.3); White Blood Cell 13.4 10^3/uL (4.4-10.8)
[2017-06-30] MEDS: MORPHINE SULF 30 mg ER tab PO SCH ×3 (06:04→22:14)
[2017-06-30] MEDS: BOOST PLUS 8 ounce PO SCH ×3 (06:04→22:24)
[2017-06-30] MEDS: DEXAMETHASONE 4 MG TAB PO SCH (10:16)
[2017-06-30] MEDS: FUROSEMIDE 20 MG/2 ML VIAL IV SCH (10:16)
[2017-06-30] MEDS: POTASSIUM CHL 10 Meq TABLET PO SCH (10:16)
[2017-06-30] MEDS: LEVOFLOXACIN 500 MG TAB PO SCH (10:17)
[2017-06-30] MEDS: PRO-STAT 64 30ML PO SCH ×2 (10:17→22:24)
[2017-07-01] MEDS: MORPHINE SULF INJ 2 MG/ML SYRINGE 1ML IV PRN ×3 (04:34→19:46)
[2017-07-01 05:00] VITALS: BP 109/74
[2017-07-01] MEDS: MORPHINE SULF 30 mg ER tab PO SCH ×3 (05:48→22:14)
[2017-07-01] MEDS: BOOST PLUS 8 ounce PO SCH ×3 (05:54→22:15)
[2017-07-01 09:00] VITALS: BP 107/68
[2017-07-01] MEDS: FUROSEMIDE 20 MG/2 ML VIAL IV SCH (09:34)
[2017-07-01] MEDS: POTASSIUM CHL 10 Meq TABLET PO SCH (09:34)
[2017-07-01] MEDS: DEXAMETHASONE 4 MG TAB PO SCH (09:34)
[2017-07-01] MEDS: PRO-STAT 64 30ML PO SCH ×2 (09:35→22:14)
[2017-07-01] MEDS: LEVOFLOXACIN 500 MG TAB PO SCH (09:40)
[2017-07-01] MEDS ORDERED: ZOLPIDEM TARTRATE 5 MG TAB PO PRN (11:15)
[2017-07-01 13:00] VITALS: BP 112/74
[2017-07-01] MEDS ORDERED: MORPHINE SULF INJ 2 MG/ML SYRINGE 1ML IV ONE (13:45)
[2017-07-01 17:00] VITALS: BP 112/71
[2017-07-01 20:00] VITALS: BP 119/81
[2017-07-01 22:14] VITALS: BP 119/81
[2017-07-01] MEDS: DOCUSATE SOD 100 MG CAP PO SCH (22:14)
[2017-07-02] MEDS: MORPHINE SULF INJ 2 MG/ML SYRINGE 1ML IV PRN ×3 (05:13→20:07)
[2017-07-02 05:29] VITALS: BP 108/73
[2017-07-02] MEDS: MORPHINE SULF 30 mg ER tab PO SCH ×3 (05:32→22:01)
[2017-07-02] MEDS: BOOST PLUS 8 ounce PO SCH ×3 (05:33→22:01)
[2017-07-02 05:59] LABS: Hematocrit 40.8 % (41.0-53.0); Hemoglobin 14.5 g/dL (13.5-17.5); Mean Corpuscular Hemoglobin 30.8 pg (28.0-32.0); Mean Corpuscular Hgb Conc. 35.5 g/dL (32.0-36.0); Mean Corpuscular Volume 86.8 fL (80.0-100.0); Mean Platelet Volume 6.9 fL (6.9-10.8); Platelet Count (auto) 330 10^3/uL (140-450); Red Cell Distribution Width 12.9 % (11.8-14.3)
[2017-07-02 06:16] LABS: Promyelocytes % 0; Reactive Lymphocytes 0
[2017-07-02 06:38] LABS: BUN/Creatinine Ratio 56.8; Calcium 9.5 mg/dL (8.5-10.1); Hypersegmented Neutrophils Present; Metamyelocytes % 1; Myelocytes % 1; Potassium 5.1 mmol/L (3.5-5.1)
[2017-07-02 06:39] LABS: Platelet Estimate Adequate; RBC Morphology Normal
[2017-07-02 08:04] VITALS: BP 119/70
[2017-07-02] MEDS: PRO-STAT 64 30ML PO SCH ×2 (10:00→22:01)
[2017-07-02] MEDS: DOCUSATE SOD 100 MG CAP PO SCH ×3 (10:00→22:01)
[2017-07-02] MEDS: DEXAMETHASONE 4 MG TAB PO SCH (11:34)
[2017-07-02] MEDS: LEVOFLOXACIN 500 MG TAB PO SCH (11:34)
[2017-07-02 11:46] VITALS: BP 111/69
[2017-07-02 16:48] VITALS: BP 116/63
[2017-07-02] MEDS: fentaNYL 50MCG/HR 50 MCG/HR PAT TD SCH (17:32)
[2017-07-02 20:00] VITALS: BP 117/63
[2017-07-02 21:54] VITALS: BP 117/63
[2017-07-03] MEDS: MORPHINE SULF INJ 2 MG/ML SYRINGE 1ML IV PRN ×5 (00:25→23:14)
[2017-07-03 02:54] VITALS: BP 117/63
[2017-07-03 06:00] VITALS: BP 113/66
[2017-07-03] MEDS: MORPHINE SULF 30 mg ER tab PO SCH ×3 (06:01→21:22)
[2017-07-03] MEDS: BOOST PLUS 8 ounce PO SCH ×3 (06:01→21:22)
[2017-07-03 09:00] VITALS: BP_SYST 111; BP_SYST 124; BP_DIAS 66; BP_DIAS 76
[2017-07-03] MEDS: DOCUSATE SOD 100 MG CAP PO SCH ×2 (10:00→21:22)
[2017-07-03] MEDS: PRO-STAT 64 30ML PO SCH ×2 (10:00→21:23)
[2017-07-03] MEDS: LEVOFLOXACIN 500 MG TAB PO SCH (10:16)
[2017-07-03] MEDS: DEXAMETHASONE 4 MG TAB PO SCH (10:16)
[2017-07-03 13:00] VITALS: BP 124/76
[2017-07-03 17:00] VITALS: BP 119/69
[2017-07-03] MEDS: THROAT LOZENGES(CEPASTAT) MT PRN (18:34)
[2017-07-03 22:00] VITALS: BP 121/76
[2017-07-04] MEDS: MORPHINE SULF INJ 2 MG/ML SYRINGE 1ML IV PRN ×4 (04:04→22:53)
[2017-07-04 05:17] VITALS: BP 114/61
[2017-07-04] MEDS: MORPHINE SULF 30 mg ER tab PO SCH ×3 (05:54→21:17)
[2017-07-04] MEDS: BOOST PLUS 8 ounce PO SCH ×3 (05:54→21:21)
[2017-07-04 09:14] VITALS: BP 107/71
[2017-07-04] MEDS: DOCUSATE SOD 100 MG CAP PO SCH ×2 (09:26→21:17)
[2017-07-04] MEDS: LEVOFLOXACIN 500 MG TAB PO SCH (09:27)
[2017-07-04] MEDS: DEXAMETHASONE 4 MG TAB PO SCH (09:27)
[2017-07-04] MEDS: PRO-STAT 64 30ML PO SCH ×2 (12:12→21:21)
[2017-07-04 13:00] VITALS: BP 112/61
[2017-07-04 17:00] VITALS: BP 118/76
[2017-07-04 22:07] VITALS: BP 120/77
[2017-07-05] MEDS: MORPHINE SULF INJ 2 MG/ML SYRINGE 1ML IV PRN ×2 (03:15→09:08)
[2017-07-05 05:13] VITALS: BP 124/68
[2017-07-05] MEDS: MORPHINE SULF 30 mg ER tab PO SCH ×3 (05:32→22:57)
[2017-07-05] MEDS: BOOST PLUS 8 ounce PO SCH ×3 (05:32→22:56)
[2017-07-05 08:00] VITALS: BP 108/76
[2017-07-05] MEDS: DEXAMETHASONE 4 MG TAB PO SCH (09:07)
[2017-07-05] MEDS: DOCUSATE SOD 100 MG CAP PO SCH ×2 (09:08→22:57)
[2017-07-05] MEDS: LEVOFLOXACIN 500 MG TAB PO SCH (09:08)
[2017-07-05] MEDS: PRO-STAT 64 30ML PO SCH ×2 (10:57→22:57)
[2017-07-05 12:00] VITALS: BP 115/81
[2017-07-05] MEDS: HYDROmorphone HCL 2 MG/ML VL IV PRN ×2 (13:40→21:15)
[2017-07-05] MEDS: fentaNYL 50MCG/HR 50 MCG/HR PAT TD SCH (16:40)
[2017-07-05 17:00] VITALS: BP 123/77
[2017-07-05] MEDS: PROMETHAZINE HCL 25 MG/ML 1ML IV PRN (21:16)
[2017-07-05 22:00] VITALS: BP 94/70
[2017-07-06 03:16] VITALS: BP 94/70
[2017-07-06 04:57] VITALS: BP 115/70
[2017-07-06 05:26] LABS: Basophils # (auto) 0 uL; Basophils % (auto) 0.2 % (0.0-2.0); Eosinophils # (auto) 0.1 uL; Hematocrit 39.2 % (41.0-53.0); Hemoglobin 13.9 g/dL (13.5-17.5); Lymphocytes # (auto) 1.5 uL; Lymphocytes % (auto) 19.9 % (10.0-50.0); Mean Corpuscular Hemoglobin 31.2 pg (28.0-32.0); Mean Corpuscular Hgb Conc. 35.4 g/dL (32.0-36.0); Mean Corpuscular Volume 88.1 fL (80.0-100.0); Mean Platelet Volume 6.6 fL (6.9-10.8); Monocytes # (auto) 1.3 uL; Monocytes % (auto) 17.4 % (0.0-12.0); Neutrophils # (auto) 4.7 uL; Neutrophils % (auto) 61.5 % (37.0-80.0); Nucleated Red Blood Cells % 0.3 %; Platelet Count (auto) 371 10^3/uL (140-450); Red Cell Distribution Width 13.6 % (11.8-14.3); White Blood Cell 7.7 10^3/uL (4.4-10.8)
[2017-07-06 05:45] LABS: Potassium 5.3 mmol/L (3.5-5.1)
[2017-07-06 05:48] LABS: Albumin 2.9 g/dL (3.4-5.0); Calcium 10.4 mg/dL (8.5-10.1)
[2017-07-06 05:52] LABS: Bilirubin, Total 0.7 mg/dL (0.2-1.0); Total Protein 6.5 g/dL (6.4-8.2)
[2017-07-06] MEDS: BOOST PLUS 8 ounce PO SCH ×3 (06:02→23:40)
[2017-07-06] MEDS: MORPHINE SULF 30 mg ER tab PO SCH ×2 (06:03→23:40)
[2017-07-06 08:00] VITALS: BP 121/76
[2017-07-06] MEDS: DOCUSATE SOD 100 MG CAP PO SCH ×2 (10:28→23:40)
[2017-07-06] MEDS: DEXAMETHASONE 4 MG TAB PO SCH (10:28)
[2017-07-06] MEDS: HYDROmorphone HCL 2 MG/ML VL IV PRN ×2 (10:29→18:53)
[2017-07-06] MEDS: PRO-STAT 64 30ML PO SCH ×2 (10:47→23:41)
[2017-07-06 12:00] VITALS: BP 111/73
[2017-07-06] MEDS ORDERED: THROAT LOZENGES(CEPASTAT) MT PRN (14:30)
[2017-07-06 17:14] VITALS: BP 121/83
[2017-07-06] MEDS: ENOXAPARIN SOD 40 MG/0.4 ML SYRINGE SC SCH (17:19)
[2017-07-06] MEDS: ALBUTEROL SULF 2.5 MG/0.5ML(0.5%) NEB SOLN NEB SCH (19:38)
[2017-07-06] MEDS: IPRATROPIUM BROM 0.5 MG/2.5ML INH SOL NEB SCH (19:38)
[2017-07-06 21:13] VITALS: BP 120/72
[2017-07-06] MEDS: PROMETHAZINE HCL 25 MG/ML 1ML IV PRN (23:41)
[2017-07-07] MEDS: HYDROmorphone HCL 2 MG/ML VL IV PRN ×5 (04:13→20:20)
[2017-07-07] MEDS: PROMETHAZINE HCL 25 MG/ML 1ML IV PRN ×3 (04:13→18:57)
[2017-07-07 05:06] VITALS: BP 112/74
[2017-07-07] MEDS: IPRATROPIUM BROM 0.5 MG/2.5ML INH SOL NEB SCH ×4 (05:38→18:57)
[2017-07-07] MEDS: ALBUTEROL SULF 2.5 MG/0.5ML(0.5%) NEB SOLN NEB SCH ×4 (05:38→18:57)
[2017-07-07] MEDS: BOOST PLUS 8 ounce PO SCH ×3 (05:43→21:41)
[2017-07-07] MEDS: MORPHINE SULF 30 mg ER tab PO SCH ×3 (05:43→21:41)
[2017-07-07 06:35] LABS: Potassium 4.7 mmol/L (3.5-5.1)
[2017-07-07 06:40] LABS: BUN/Creatinine Ratio 62.5; Calcium 10.8 mg/dL (8.5-10.1)
[2017-07-07] MEDS: DOCUSATE SOD 100 MG CAP PO SCH ×2 (08:26→21:41)
[2017-07-07] MEDS: ENOXAPARIN SOD 40 MG/0.4 ML SYRINGE SC SCH (08:26)
[2017-07-07] MEDS: PRO-STAT 64 30ML PO SCH ×2 (08:27→21:41)
[2017-07-07] MEDS: DEXAMETHASONE 4 MG TAB PO SCH (08:35)
[2017-07-07 09:00] VITALS: BP 116/75
[2017-07-07 12:31] VITALS: BP 115/74
[2017-07-07 15:52] VITALS: BP 127/77
[2017-07-07 22:00] VITALS: BP 143/112
[2017-07-08] MEDS: HYDROmorphone HCL 2 MG/ML VL IV PRN ×6 (00:18→20:37)
[2017-07-08] MEDS: PROMETHAZINE HCL 25 MG/ML 1ML IV PRN ×4 (00:59→23:56)
[2017-07-08] MEDS: IPRATROPIUM BROM 0.5 MG/2.5ML INH SOL NEB SCH ×4 (01:08→19:32)
[2017-07-08] MEDS: ALBUTEROL SULF 2.5 MG/0.5ML(0.5%) NEB SOLN NEB SCH ×4 (01:08→19:32)
[2017-07-08 04:53] VITALS: BP 118/70
[2017-07-08] MEDS: BOOST PLUS 8 ounce PO SCH ×3 (06:00→21:47)
[2017-07-08] MEDS: MORPHINE SULF 30 mg ER tab PO SCH ×3 (06:20→21:46)
[2017-07-08 09:00] VITALS: BP 115/71
[2017-07-08] MEDS: PRO-STAT 64 30ML PO SCH ×2 (10:00→21:47)
[2017-07-08] MEDS: ENOXAPARIN SOD 40 MG/0.4 ML SYRINGE SC SCH (11:37)
[2017-07-08] MEDS: DOCUSATE SOD 100 MG CAP PO SCH ×2 (11:37→21:47)
[2017-07-08] MEDS: DEXAMETHASONE 4 MG TAB PO SCH (11:37)
[2017-07-08 12:00] VITALS: BP 136/82
[2017-07-08 17:00] VITALS: BP 121/70
[2017-07-08] MEDS: fentaNYL 50MCG/HR 50 MCG/HR PAT TD SCH (17:47)
[2017-07-08 20:55] VITALS: BP 121/70
[2017-07-08 21:50] VITALS: BP 116/68
[2017-07-09] MEDS: ZOLPIDEM TARTRATE 5 MG TAB PO PRN (00:26)
[2017-07-09] MEDS: HYDROmorphone HCL 2 MG/ML VL IV PRN ×6 (00:26→20:34)
[2017-07-09 04:48] VITALS: BP 108/69
[2017-07-09 05:15] LABS: Hematocrit 40.5 % (41.0-53.0); Mean Corpuscular Hemoglobin 30.8 pg (28.0-32.0); Mean Corpuscular Hgb Conc. 34.6 g/dL (32.0-36.0); Mean Corpuscular Volume 89.2 fL (80.0-100.0); Mean Platelet Volume 6.7 fL (6.9-10.8); Platelet Count (auto) 315 10^3/uL (140-450); Red Cell Distribution Width 14.2 % (11.8-14.3); White Blood Cell 12.7 10^3/uL (4.4-10.8)
[2017-07-09 05:34] LABS: Albumin 2.7 g/dL (3.4-5.0); BUN/Creatinine Ratio 68.2; Calcium 10.2 mg/dL (8.5-10.1); Potassium 4.9 mmol/L (3.5-5.1)
[2017-07-09 05:36] LABS: Bilirubin, Total 0.6 mg/dL (0.2-1.0); Total Protein 6.5 g/dL (6.4-8.2)
[2017-07-09] MEDS: PROMETHAZINE HCL 25 MG/ML 1ML IV PRN ×3 (05:53→19:55)
[2017-07-09] MEDS: MORPHINE SULF 30 mg ER tab PO SCH ×3 (05:53→21:28)
[2017-07-09] MEDS: BOOST PLUS 8 ounce PO SCH ×3 (05:54→21:28)
[2017-07-09 06:08] LABS: Promyelocytes % 0; Reactive Lymphocytes 0
[2017-07-09] MEDS: ALBUTEROL SULF 2.5 MG/0.5ML(0.5%) NEB SOLN NEB SCH ×3 (06:29→19:32)
[2017-07-09] MEDS: IPRATROPIUM BROM 0.5 MG/2.5ML INH SOL NEB SCH ×3 (06:29→19:32)
[2017-07-09 06:56] LABS: Metamyelocytes % 3; Myelocytes % 1
[2017-07-09 06:57] LABS: Platelet Estimate Adequate; RBC Morphology Normal
[2017-07-09 09:00] VITALS: BP 121/74
[2017-07-09] MEDS: DOCUSATE SOD 100 MG CAP PO SCH ×2 (09:53→21:28)
[2017-07-09] MEDS: DEXAMETHASONE 4 MG TAB PO SCH (09:53)
[2017-07-09] MEDS: PRO-STAT 64 30ML PO SCH ×2 (09:54→21:29)
[2017-07-09] MEDS: ENOXAPARIN SOD 40 MG/0.4 ML SYRINGE SC SCH (09:54)
[2017-07-09] MEDS ORDERED: D5W 5% IV ONE ×4 (10:45→11:00)
[2017-07-09] MEDS ORDERED: DEXAMETHASONE IV ONE (10:45)
[2017-07-09] MEDS ORDERED: IRINOTECAN HYDROCHLORIDE IV ONE (11:00)
[2017-07-09] MEDS ORDERED: FLUOROURACIL IV ONE (11:00)
[2017-07-09] MEDS ORDERED: OXALIPLATIN IV ONE (11:00)
[2017-07-09] MEDS ORDERED: LEUCOVORIN CALCIUM IV ONE (11:00)
[2017-07-09 13:00] VITALS: BP 114/72
[2017-07-09] MEDS: ONDANSETRON HCL 4 MG/2 ML VIAL IV PRN ×2 (15:59→21:36)
[2017-07-09 17:00] VITALS: BP 123/77
[2017-07-09] MEDS: FLUOROURACIL IV SCH (17:55)
[2017-07-09] MEDS: D5W 5% IV SCH (17:55)
[2017-07-09 22:00] VITALS: BP 117/75
[2017-07-10] MEDS: ONDANSETRON HCL 4 MG/2 ML VIAL IV PRN ×5 (01:34→23:56)
[2017-07-10] MEDS: HYDROmorphone HCL 2 MG/ML VL IV PRN ×5 (01:53→23:56)
[2017-07-10] MEDS: PROMETHAZINE HCL 25 MG/ML 1ML IV PRN ×2 (02:33→19:17)
[2017-07-10 05:00] VITALS: BP 112/71
[2017-07-10] MEDS: BOOST PLUS 8 ounce PO SCH ×3 (05:44→23:56)
[2017-07-10] MEDS: MORPHINE SULF 30 mg ER tab PO SCH ×3 (05:44→23:55)
[2017-07-10 06:01] LABS: Hematocrit 40.2 % (41.0-53.0); Mean Corpuscular Hemoglobin 31.3 pg (28.0-32.0); Mean Corpuscular Hgb Conc. 34.9 g/dL (32.0-36.0); Mean Corpuscular Volume 89.7 fL (80.0-100.0); Mean Platelet Volume 6.9 fL (6.9-10.8); Platelet Count (auto) 286 10^3/uL (140-450); Red Cell Distribution Width 14.2 % (11.8-14.3); White Blood Cell 14.2 10^3/uL (4.4-10.8)
[2017-07-10 06:06] LABS: Metamyelocytes % 0; Myelocytes % 0; Promyelocytes % 0; Reactive Lymphocytes 0
[2017-07-10] MEDS: IPRATROPIUM BROM 0.5 MG/2.5ML INH SOL NEB SCH ×4 (06:13→20:25)
[2017-07-10] MEDS: ALBUTEROL SULF 2.5 MG/0.5ML(0.5%) NEB SOLN NEB SCH ×4 (06:13→20:25)
[2017-07-10 06:38] LABS: BUN/Creatinine Ratio 66.7; Calcium 9.6 mg/dL (8.5-10.1); Potassium 4.7 mmol/L (3.5-5.1)
[2017-07-10 07:55] VITALS: BP 124/71
[2017-07-10 08:25] LABS: Platelet Estimate Adequate
[2017-07-10] MEDS: PRO-STAT 64 30ML PO SCH ×2 (10:01→23:55)
[2017-07-10] MEDS: ENOXAPARIN SOD 40 MG/0.4 ML SYRINGE SC SCH (10:02)
[2017-07-10] MEDS: DEXAMETHASONE 4 MG TAB PO SCH (10:02)
[2017-07-10] MEDS: DOCUSATE SOD 100 MG CAP PO SCH ×2 (10:02→23:55)
[2017-07-10 12:53] VITALS: BP 99/68
[2017-07-10 16:10] VITALS: BP 119/77
[2017-07-10] MEDS: LORazepam 2MG/ML-1ML VIAL IV PRN (16:12)
[2017-07-10] MEDS: D5W 5% IV SCH (16:57)
[2017-07-10] MEDS: FLUOROURACIL IV SCH (16:57)
[2017-07-10 21:34] VITALS: BP 110/79
[2017-07-11] MEDS: IPRATROPIUM BROM 0.5 MG/2.5ML INH SOL NEB SCH ×4 (00:45→18:00)
[2017-07-11] MEDS: ALBUTEROL SULF 2.5 MG/0.5ML(0.5%) NEB SOLN NEB SCH ×4 (00:45→18:00)
[2017-07-11] MEDS: HYDROmorphone HCL 2 MG/ML VL IV PRN ×7 (04:40→22:23)
[2017-07-11] MEDS: PROMETHAZINE HCL 25 MG/ML 1ML IV PRN ×2 (04:41→13:13)
[2017-07-11 05:10] VITALS: BP 112/75
[2017-07-11] MEDS: BOOST PLUS 8 ounce PO SCH ×3 (06:00→22:13)
[2017-07-11 06:09] LABS: Hematocrit 39.4 % (41.0-53.0); Hemoglobin 13.7 g/dL (13.5-17.5); Mean Corpuscular Hemoglobin 31.2 pg (28.0-32.0); Mean Corpuscular Hgb Conc. 34.7 g/dL (32.0-36.0); Mean Corpuscular Volume 89.8 fL (80.0-100.0); Mean Platelet Volume 7.1 fL (6.9-10.8); Platelet Count (auto) 277 10^3/uL (140-450); Red Cell Distribution Width 14.2 % (11.8-14.3); White Blood Cell 15.5 10^3/uL (4.4-10.8)
[2017-07-11 06:12] LABS: Metamyelocytes % 0; Myelocytes % 0; Promyelocytes % 0; Reactive Lymphocytes 0
[2017-07-11 06:28] LABS: BUN/Creatinine Ratio 59.5; Potassium 4.6 mmol/L (3.5-5.1)
[2017-07-11] MEDS: MORPHINE SULF 30 mg ER tab PO SCH ×3 (06:37→21:22)
[2017-07-11] MEDS: ONDANSETRON HCL 4 MG/2 ML VIAL IV PRN ×4 (06:46→22:23)
[2017-07-11 08:41] VITALS: BP 112/66
[2017-07-11 08:43] LABS: Platelet Estimate Adequate
[2017-07-11] MEDS: DEXAMETHASONE 4 MG TAB PO SCH (09:27)
[2017-07-11] MEDS: ENOXAPARIN SOD 40 MG/0.4 ML SYRINGE SC SCH (09:27)
[2017-07-11] MEDS: DOCUSATE SOD 100 MG CAP PO SCH ×2 (09:27→21:21)
[2017-07-11] MEDS: PRO-STAT 64 30ML PO SCH ×2 (09:28→22:13)
[2017-07-11] MEDS: PROMETHAZINE W/CODEINE 5 ML ORAL SYRUP PO PRN (11:22)
[2017-07-11] MEDS ORDERED: ALBUTEROL SULF 2.5 MG/0.5ML(0.5%) NEB SOLN NEB PRN (12:15)
[2017-07-11 12:30] VITALS: BP 116/74
[2017-07-11 16:49] VITALS: BP 118/75
[2017-07-11] MEDS: fentaNYL 50MCG/HR 50 MCG/HR PAT TD SCH (17:04)
[2017-07-11] MEDS: LORazepam 2MG/ML-1ML VIAL IV PRN (18:47)
[2017-07-11 21:38] VITALS: BP 118/75
[2017-07-11 21:58] VITALS: BP 104/68
[2017-07-12] MEDS: IPRATROPIUM BROM 0.5 MG/2.5ML INH SOL NEB SCH ×3 (00:34→22:52)
[2017-07-12] MEDS: ALBUTEROL SULF 2.5 MG/0.5ML(0.5%) NEB SOLN NEB SCH ×3 (00:34→22:52)
[2017-07-12] MEDS: HYDROmorphone HCL 2 MG/ML VL IV PRN ×7 (01:31→20:51)
[2017-07-12] MEDS: PROMETHAZINE HCL 25 MG/ML 1ML IV PRN ×2 (01:31→17:08)
[2017-07-12] MEDS: ONDANSETRON HCL 4 MG/2 ML VIAL IV PRN ×2 (04:28→07:33)
[2017-07-12 05:13] VITALS: BP 108/66
[2017-07-12 05:26] LABS: Hematocrit 37.6 % (41.0-53.0); Hemoglobin 13.2 g/dL (13.5-17.5); Mean Corpuscular Hgb Conc. 35.2 g/dL (32.0-36.0); Mean Corpuscular Volume 88.2 fL (80.0-100.0); Mean Platelet Volume 7.3 fL (6.9-10.8); Platelet Count (auto) 247 10^3/uL (140-450); Red Cell Distribution Width 14.6 % (11.8-14.3); White Blood Cell 15.8 10^3/uL (4.4-10.8)
[2017-07-12 05:28] LABS: Metamyelocytes % 0; Myelocytes % 0; Promyelocytes % 0; Reactive Lymphocytes 0
[2017-07-12] MEDS: BOOST PLUS 8 ounce PO SCH ×3 (06:01→22:00)
[2017-07-12] MEDS: MORPHINE SULF 30 mg ER tab PO SCH ×3 (06:03→22:32)
[2017-07-12 06:20] LABS: Platelet Estimate Adequate; RBC Morphology Normal
[2017-07-12 08:00] VITALS: BP 104/68
[2017-07-12 09:00] VITALS: BP 116/82
[2017-07-12] MEDS: PROMETHAZINE W/CODEINE 5 ML ORAL SYRUP PO PRN (09:03)
[2017-07-12] MEDS: PRO-STAT 64 30ML PO SCH ×2 (10:00→22:00)
[2017-07-12] MEDS: LORazepam 2MG/ML-1ML VIAL IV PRN (10:14)
[2017-07-12 13:00] VITALS: BP 114/70
[2017-07-12] MEDS: DEXAMETHASONE 4 MG TAB PO SCH (13:32)
[2017-07-12] MEDS: ENOXAPARIN SOD 40 MG/0.4 ML SYRINGE SC SCH (13:32)
[2017-07-12] MEDS: DOCUSATE SOD 100 MG CAP PO SCH ×2 (13:32→22:31)
[2017-07-12 17:00] VITALS: BP 119/67
[2017-07-12 20:13] VITALS: BP 116/73
[2017-07-12] MEDS: ZOLPIDEM TARTRATE 5 MG TAB PO PRN (22:33)
[2017-07-13] MEDS: HYDROmorphone HCL 2 MG/ML VL IV PRN ×6 (02:07→20:30)
[2017-07-13 04:45] VITALS: BP 116/71
[2017-07-13] MEDS: SODIUM CHLORIDE 0.9% 1,000 ML IV SCH ×2 (05:52→10:06)
[2017-07-13] MEDS: MORPHINE SULF 30 mg ER tab PO SCH ×3 (06:00→22:12)
[2017-07-13] MEDS: ALBUTEROL SULF 2.5 MG/0.5ML(0.5%) NEB SOLN NEB SCH ×3 (06:00→18:39)
[2017-07-13] MEDS: IPRATROPIUM BROM 0.5 MG/2.5ML INH SOL NEB SCH ×3 (06:00→18:39)
[2017-07-13] MEDS: BOOST PLUS 8 ounce PO SCH ×3 (06:00→22:00)
[2017-07-13] MEDS: PROMETHAZINE HCL 25 MG/ML 1ML IV PRN ×3 (06:13→20:30)
[2017-07-13 09:00] VITALS: BP 113/65
[2017-07-13] MEDS: DEXAMETHASONE 4 MG TAB PO SCH (09:27)
[2017-07-13] MEDS: DOCUSATE SOD 100 MG CAP PO SCH ×2 (10:00→22:13)
[2017-07-13] MEDS: ENOXAPARIN SOD 40 MG/0.4 ML SYRINGE SC SCH (10:00)
[2017-07-13] MEDS: PRO-STAT 64 30ML PO SCH ×2 (10:07→22:12)
[2017-07-13] MEDS: ONDANSETRON HCL 4 MG/2 ML VIAL IV PRN ×2 (11:31→19:02)
[2017-07-13 13:07] VITALS: BP 111/70
[2017-07-13 17:00] VITALS: BP 104/69
[2017-07-13 22:00] VITALS: BP 142/73
[2017-07-13] MEDS: ZOLPIDEM TARTRATE 5 MG TAB PO PRN (22:19)
[2017-07-14] VITALS (8 sets, daily range): BP systolic 107–142; BP diastolic 71–81
[2017-07-14] MEDS: ONDANSETRON HCL 4 MG/2 ML VIAL IV PRN ×4 (00:33→21:44)
[2017-07-14] MEDS: HYDROmorphone HCL 2 MG/ML VL IV PRN ×5 (00:34→19:44)
[2017-07-14] MEDS: SODIUM CHLORIDE 0.9% 1,000 ML IV SCH ×2 (00:36→08:55)
[2017-07-14] MEDS: BOOST PLUS 8 ounce PO SCH ×3 (06:00→21:48)
[2017-07-14] MEDS: MORPHINE SULF 30 mg ER tab PO SCH ×3 (06:15→21:38)
[2017-07-14] MEDS: ALBUTEROL SULF 2.5 MG/0.5ML(0.5%) NEB SOLN NEB SCH ×5 (07:41→22:41)
[2017-07-14] MEDS: IPRATROPIUM BROM 0.5 MG/2.5ML INH SOL NEB SCH ×5 (07:41→22:41)
[2017-07-14] MEDS: ENOXAPARIN SOD 40 MG/0.4 ML SYRINGE SC SCH (08:49)
[2017-07-14] MEDS: DEXAMETHASONE 4 MG TAB PO SCH (08:50)
[2017-07-14] MEDS: DOCUSATE SOD 100 MG CAP PO SCH ×2 (08:51→21:38)
[2017-07-14] MEDS: PRO-STAT 64 30ML PO SCH ×2 (08:55→21:48)
[2017-07-14] MEDS: PROMETHAZINE HCL 25 MG/ML 1ML IV PRN ×2 (11:24→19:44)
[2017-07-14] MEDS: fentaNYL 50MCG/HR 50 MCG/HR PAT TD SCH (16:55)
[2017-07-14] MEDS: ZOLPIDEM TARTRATE 5 MG TAB PO PRN (21:44)
[2017-07-15] MEDS: HYDROmorphone HCL 2 MG/ML VL IV PRN ×7 (00:44→22:03)
[2017-07-15] MEDS: PROMETHAZINE HCL 25 MG/ML 1ML IV PRN ×3 (04:03→21:55)
[2017-07-15] MEDS: SODIUM CHLORIDE 0.9% 1,000 ML IV SCH ×2 (04:03→12:52)
[2017-07-15 05:00] VITALS: BP 108/70
[2017-07-15] MEDS: BOOST PLUS 8 ounce PO SCH ×3 (06:00→22:00)
[2017-07-15] MEDS: MORPHINE SULF 30 mg ER tab PO SCH ×3 (06:04→22:00)
[2017-07-15] MEDS: ALBUTEROL SULF 2.5 MG/0.5ML(0.5%) NEB SOLN NEB SCH ×3 (06:43→18:46)
[2017-07-15] MEDS: IPRATROPIUM BROM 0.5 MG/2.5ML INH SOL NEB SCH ×3 (06:43→18:46)
[2017-07-15 08:00] VITALS: BP 112/67
[2017-07-15] MEDS: DEXAMETHASONE 4 MG TAB PO SCH (08:37)
[2017-07-15] MEDS: DOCUSATE SOD 100 MG CAP PO SCH ×2 (08:38→22:00)
[2017-07-15] MEDS: ONDANSETRON HCL 4 MG/2 ML VIAL IV PRN ×3 (08:39→18:12)
[2017-07-15] MEDS: ENOXAPARIN SOD 40 MG/0.4 ML SYRINGE SC SCH (08:39)
[2017-07-15] MEDS: PRO-STAT 64 30ML PO SCH ×2 (08:41→22:00)
[2017-07-15 17:00] VITALS: BP 113/77
[2017-07-15 20:10] VITALS: BP 120/69
[2017-07-15 22:00] VITALS: BP 120/69
[2017-07-16] MEDS: ONDANSETRON HCL 4 MG/2 ML VIAL IV PRN ×2 (02:00→11:02)
[2017-07-16] MEDS: HYDROmorphone HCL 2 MG/ML VL IV PRN ×5 (02:01→18:28)
[2017-07-16 04:46] VITALS: BP 115/70
[2017-07-16] MEDS: PROMETHAZINE HCL 25 MG/ML 1ML IV PRN ×5 (05:08→23:57)
[2017-07-16] MEDS: BOOST PLUS 8 ounce PO SCH ×3 (06:00→22:00)
[2017-07-16] MEDS: SODIUM CHLORIDE 0.9% 1,000 ML IV SCH ×2 (06:19→15:47)
[2017-07-16] MEDS: MORPHINE SULF 30 mg ER tab PO SCH ×3 (06:19→22:30)
[2017-07-16] MEDS: ALBUTEROL SULF 2.5 MG/0.5ML(0.5%) NEB SOLN NEB SCH ×3 (07:01→17:53)
[2017-07-16] MEDS: IPRATROPIUM BROM 0.5 MG/2.5ML INH SOL NEB SCH ×4 (07:02→17:53)
[2017-07-16 09:00] VITALS: BP 114/75
[2017-07-16] MEDS: ENOXAPARIN SOD 40 MG/0.4 ML SYRINGE SC SCH (09:15)
[2017-07-16] MEDS: DOCUSATE SOD 100 MG CAP PO SCH ×2 (09:17→22:00)
[2017-07-16] MEDS: DEXAMETHASONE 4 MG TAB PO SCH (09:18)
[2017-07-16] MEDS: PRO-STAT 64 30ML PO SCH ×2 (10:00→22:10)
[2017-07-16] MEDS: predniSONE 20 MG TAB PO SCH ×2 (11:11→22:00)
[2017-07-16] MEDS: LORATADINE 10 MG TAB PO SCH (11:12)
[2017-07-16 13:00] VITALS: BP 124/95
[2017-07-16] MEDS: FLUTICASONE PROP NASAL SPR 0.05 % (50MCG) 16GM EACHNOSTRI SCH (15:47)
[2017-07-16 16:28] VITALS: BP 149/88
[2017-07-16 22:00] VITALS: BP 110/72
[2017-07-16] MEDS: ZOLPIDEM TARTRATE 5 MG TAB PO PRN (22:31)
[2017-07-16] MEDS: MONTELUKAST SODIUM 10 MG TAB PO SCH ×2 (22:45→22:48)
[2017-07-17] MEDS: SODIUM CHLORIDE 0.9% 1,000 ML IV SCH ×2 (03:58→18:14)
[2017-07-17 05:00] VITALS: BP 115/70
[2017-07-17] MEDS: MORPHINE SULF 30 mg ER tab PO SCH (06:00)
[2017-07-17] MEDS: BOOST PLUS 8 ounce PO SCH ×3 (06:00→21:13)
[2017-07-17] MEDS: PROMETHAZINE HCL 25 MG/ML 1ML IV PRN ×4 (06:11→20:02)
[2017-07-17] MEDS: ALBUTEROL SULF 2.5 MG/0.5ML(0.5%) NEB SOLN NEB SCH ×3 (07:18→22:52)
[2017-07-17] MEDS: IPRATROPIUM BROM 0.5 MG/2.5ML INH SOL NEB SCH ×5 (07:18→22:52)
[2017-07-17 09:00] VITALS: BP 121/73
[2017-07-17] MEDS: HYDROmorphone HCL 2 MG/ML VL IV PRN ×5 (10:06→23:32)
[2017-07-17] MEDS: predniSONE 20 MG TAB PO SCH ×2 (10:10→21:21)
[2017-07-17] MEDS: DOCUSATE SOD 100 MG CAP PO SCH ×2 (10:10→21:21)
[2017-07-17] MEDS: ENOXAPARIN SOD 40 MG/0.4 ML SYRINGE SC SCH (10:10)
[2017-07-17] MEDS: LORATADINE 10 MG TAB PO SCH (10:10)
[2017-07-17] MEDS: FLUTICASONE PROP NASAL SPR 0.05 % (50MCG) 16GM EACHNOSTRI SCH (10:10)
[2017-07-17] MEDS: DEXAMETHASONE 4 MG TAB PO SCH (10:10)
[2017-07-17] MEDS: PRO-STAT 64 30ML PO SCH ×2 (10:12→21:13)
[2017-07-17 13:00] VITALS: BP 120/81
[2017-07-17] MEDS: fentaNYL 75MCG/HR 75 MCG/HR PAT TD SCH (13:47)
[2017-07-17] MEDS: OXYCODONE W/ ACETAMINOPHEN 5/325MG TABLET PO PRN (16:18)
[2017-07-17 17:00] VITALS: BP 113/74
[2017-07-17] MEDS: ONDANSETRON HCL 4 MG/2 ML VIAL IV PRN ×2 (17:23→23:07)
[2017-07-17 22:19] VITALS: BP 113/73
[2017-07-18] MEDS: HYDROmorphone HCL 2 MG/ML VL IV PRN ×5 (04:07→21:37)
[2017-07-18] MEDS: ONDANSETRON HCL 4 MG/2 ML VIAL IV PRN ×3 (04:08→18:15)
[2017-07-18 05:31] VITALS: BP 113/80
[2017-07-18] MEDS: IPRATROPIUM BROM 0.5 MG/2.5ML INH SOL NEB SCH ×3 (05:42→19:28)
[2017-07-18] MEDS: ALBUTEROL SULF 2.5 MG/0.5ML(0.5%) NEB SOLN NEB SCH ×3 (05:42→22:34)
[2017-07-18] MEDS: BOOST PLUS 8 ounce PO SCH ×3 (06:00→21:29)
[2017-07-18] MEDS: SODIUM CHLORIDE 0.9% 1,000 ML IV SCH ×2 (06:22→21:02)
[2017-07-18] MEDS: FLUTICASONE PROP NASAL SPR 0.05 % (50MCG) 16GM EACHNOSTRI SCH (08:58)
[2017-07-18] MEDS: DOCUSATE SOD 100 MG CAP PO SCH ×2 (08:59→21:37)
[2017-07-18] MEDS: LORATADINE 10 MG TAB PO SCH (08:59)
[2017-07-18] MEDS: predniSONE 20 MG TAB PO SCH ×2 (08:59→21:37)
[2017-07-18] MEDS: DEXAMETHASONE 4 MG TAB PO SCH (08:59)
[2017-07-18 09:00] VITALS: BP 117/80
[2017-07-18] MEDS: ENOXAPARIN SOD 40 MG/0.4 ML SYRINGE SC SCH (09:00)
[2017-07-18] MEDS: PRO-STAT 64 30ML PO SCH ×2 (09:00→21:30)
[2017-07-18] MEDS: PROMETHAZINE HCL 25 MG/ML 1ML IV PRN (12:13)
[2017-07-18 13:00] VITALS: BP 113/72
[2017-07-18] MEDS: OXYCODONE W/ ACETAMINOPHEN 5/325MG TABLET PO PRN (15:06)
[2017-07-18 16:59] VITALS: BP 114/74
[2017-07-18 21:50] VITALS: BP 112/73
[2017-07-19] VITALS (7 sets, daily range): BP systolic 106–119; BP diastolic 66–78
[2017-07-19] MEDS: HYDROmorphone HCL 2 MG/ML VL IV PRN ×5 (00:45→18:35)
[2017-07-19] MEDS: ONDANSETRON HCL 4 MG/2 ML VIAL IV PRN ×5 (00:54→22:48)
[2017-07-19] MEDS: BOOST PLUS 8 ounce PO SCH ×2 (06:00→14:00)
[2017-07-19] MEDS: ALBUTEROL SULF 2.5 MG/0.5ML(0.5%) NEB SOLN NEB SCH ×3 (07:18→18:50)
[2017-07-19] MEDS: IPRATROPIUM BROM 0.5 MG/2.5ML INH SOL NEB SCH ×4 (07:18→18:50)
[2017-07-19] MEDS: MONTELUKAST SODIUM 10 MG TAB PO SCH ×2 (08:19→21:53)
[2017-07-19] MEDS: PROMETHAZINE HCL 25 MG/ML 1ML IV PRN (08:37)
[2017-07-19] MEDS: SODIUM CHLORIDE 0.9% 1,000 ML IV SCH ×2 (09:45→23:04)
[2017-07-19] MEDS: PRO-STAT 64 30ML PO SCH ×2 (10:00→21:54)
[2017-07-19] MEDS: FLUTICASONE PROP NASAL SPR 0.05 % (50MCG) 16GM EACHNOSTRI SCH (10:34)
[2017-07-19] MEDS: ENOXAPARIN SOD 40 MG/0.4 ML SYRINGE SC SCH (10:34)
[2017-07-19] MEDS: DEXAMETHASONE 4 MG TAB PO SCH (10:35)
[2017-07-19] MEDS: LORATADINE 10 MG TAB PO SCH (10:35)
[2017-07-19] MEDS: DOCUSATE SOD 100 MG CAP PO SCH ×2 (10:35→21:53)
[2017-07-19] MEDS: predniSONE 20 MG TAB PO SCH ×2 (10:36→21:53)
[2017-07-19] MEDS: oxyCODONE ER 10 MG TAB PO SCH ×2 (10:37→21:53)
[2017-07-19 12:38] LABS: Basophils # (auto) 0 uL; Basophils % (auto) 0.2 % (0.0-2.0); Eosinophils # (auto) 0.1 uL; Eosinophils % (auto) 0.7 % (0.0-7.0); Hematocrit 37.3 % (41.0-53.0); Hemoglobin 13.1 g/dL (13.5-17.5); Lymphocytes # (auto) 0.3 uL; Lymphocytes % (auto) 3.6 % (10.0-50.0); Mean Corpuscular Hemoglobin 31.1 pg (28.0-32.0); Mean Corpuscular Hgb Conc. 35.2 g/dL (32.0-36.0); Mean Corpuscular Volume 88.4 fL (80.0-100.0); Mean Platelet Volume 6.8 fL (6.9-10.8); Monocytes # (auto) 0.1 uL; Monocytes % (auto) 1.8 % (0.0-12.0); Neutrophils # (auto) 7.2 uL; Neutrophils % (auto) 93.7 % (37.0-80.0); Nucleated Red Blood Cells % 0.4 %; Platelet Count (auto) 168 10^3/uL (140-450); Red Cell Distribution Width 14.1 % (11.8-14.3); White Blood Cell 7.6 10^3/uL (4.4-10.8)
[2017-07-19 12:59] LABS: Albumin 2.8 g/dL (3.4-5.0); BUN/Creatinine Ratio 54.5; Bilirubin, Total 0.4 mg/dL (0.2-1.0); Calcium 8.6 mg/dL (8.5-10.1); Potassium 4.2 mmol/L (3.5-5.1); Total Protein 6.6 g/dL (6.4-8.2)
[2017-07-20] MEDS: HYDROmorphone HCL 2 MG/ML VL IV PRN ×7 (00:28→23:12)
[2017-07-20] MEDS: ONDANSETRON HCL 4 MG/2 ML VIAL IV PRN ×3 (04:42→21:54)
[2017-07-20 05:39] VITALS: BP 110/72
[2017-07-20] MEDS: IPRATROPIUM BROM 0.5 MG/2.5ML INH SOL NEB SCH ×4 (07:25→23:09)
[2017-07-20] MEDS: ALBUTEROL SULF 2.5 MG/0.5ML(0.5%) NEB SOLN NEB SCH ×3 (07:28→23:09)
[2017-07-20] MEDS: PROMETHAZINE HCL 25 MG/ML 1ML IV PRN ×2 (07:53→18:43)
[2017-07-20 09:00] VITALS: BP 119/86
[2017-07-20] MEDS: FLUTICASONE PROP NASAL SPR 0.05 % (50MCG) 16GM EACHNOSTRI SCH (10:00)
[2017-07-20] MEDS: LORATADINE 10 MG TAB PO SCH (11:27)
[2017-07-20] MEDS: predniSONE 20 MG TAB PO SCH ×2 (11:28→21:54)
[2017-07-20] MEDS: ENOXAPARIN SOD 40 MG/0.4 ML SYRINGE SC SCH (11:28)
[2017-07-20] MEDS: DEXAMETHASONE 4 MG TAB PO SCH (11:28)
[2017-07-20] MEDS: oxyCODONE ER 10 MG TAB PO SCH ×2 (11:28→21:54)
[2017-07-20] MEDS: SODIUM CHLORIDE 0.9% 1,000 ML IV SCH (12:34)
[2017-07-20 13:00] VITALS: BP 118/77
[2017-07-20] MEDS: fentaNYL 75MCG/HR 75 MCG/HR PAT TD SCH (13:00)
[2017-07-20 17:48] VITALS: BP 108/78
[2017-07-20 20:00] VITALS: BP 104/74
[2017-07-20] MEDS: MONTELUKAST SODIUM 10 MG TAB PO SCH (21:54)
[2017-07-20 22:06] VITALS: BP 104/74
[2017-07-21] MEDS: PROMETHAZINE HCL 25 MG/ML 1ML IV PRN ×2 (00:58→20:07)
[2017-07-21] MEDS: IPRATROPIUM BROM 0.5 MG/2.5ML INH SOL NEB SCH ×5 (01:30→20:28)
[2017-07-21] MEDS: HYDROmorphone HCL 2 MG/ML VL IV PRN ×6 (04:28→23:54)
[2017-07-21] MEDS: ONDANSETRON HCL 4 MG/2 ML VIAL IV PRN (04:28)
[2017-07-21] MEDS: SODIUM CHLORIDE 0.9% 1,000 ML IV SCH ×2 (04:29→15:13)
[2017-07-21 05:00] VITALS: BP 112/73
[2017-07-21] MEDS: ALBUTEROL SULF 2.5 MG/0.5ML(0.5%) NEB SOLN NEB SCH ×3 (07:32→19:35)
[2017-07-21 09:00] VITALS: BP 111/82
[2017-07-21] MEDS: predniSONE 20 MG TAB PO SCH ×2 (10:28→22:11)
[2017-07-21] MEDS: oxyCODONE ER 10 MG TAB PO SCH ×2 (10:29→22:11)
[2017-07-21] MEDS: LORATADINE 10 MG TAB PO SCH (10:29)
[2017-07-21] MEDS: DEXAMETHASONE 4 MG TAB PO SCH (10:30)
[2017-07-21] MEDS: ENOXAPARIN SOD 40 MG/0.4 ML SYRINGE SC SCH (10:31)
[2017-07-21] MEDS: FLUTICASONE PROP NASAL SPR 0.05 % (50MCG) 16GM EACHNOSTRI SCH (10:31)
[2017-07-21 13:00] VITALS: BP 125/82
[2017-07-21] MEDS: CARISOPRODOL 350 MG TAB PO SCH ×2 (15:12→22:11)
[2017-07-21 17:00] VITALS: BP 115/79
[2017-07-21 20:00] VITALS: BP 114/71
[2017-07-21 22:00] VITALS: BP 114/71
[2017-07-21] MEDS: MONTELUKAST SODIUM 10 MG TAB PO SCH (22:11)
[2017-07-22] MEDS: SODIUM CHLORIDE 0.9% 1,000 ML IV SCH ×2 (04:25→16:49)
[2017-07-22 04:52] VITALS: BP 110/78
[2017-07-22] MEDS: ONDANSETRON HCL 4 MG/2 ML VIAL IV PRN ×3 (05:08→22:02)
[2017-07-22] MEDS: HYDROmorphone HCL 2 MG/ML VL IV PRN ×6 (05:08→22:03)
[2017-07-22] MEDS: CARISOPRODOL 350 MG TAB PO SCH ×3 (06:17→22:03)
[2017-07-22] MEDS: ALBUTEROL SULF 2.5 MG/0.5ML(0.5%) NEB SOLN NEB SCH ×3 (06:21→19:25)
[2017-07-22] MEDS: IPRATROPIUM BROM 0.5 MG/2.5ML INH SOL NEB SCH ×3 (06:22→19:25)
[2017-07-22] MEDS: PROMETHAZINE HCL 25 MG/ML 1ML IV PRN (08:26)
[2017-07-22 09:00] VITALS: BP 113/79
[2017-07-22] MEDS: predniSONE 20 MG TAB PO SCH ×2 (11:08→22:03)
[2017-07-22] MEDS: DEXAMETHASONE 4 MG TAB PO SCH (11:08)
[2017-07-22] MEDS: FLUTICASONE PROP NASAL SPR 0.05 % (50MCG) 16GM EACHNOSTRI SCH (11:08)
[2017-07-22] MEDS: oxyCODONE ER 10 MG TAB PO SCH ×2 (11:08→22:00)
[2017-07-22] MEDS: LORATADINE 10 MG TAB PO SCH (11:08)
[2017-07-22 13:00] VITALS: BP 119/81
[2017-07-22 17:19] VITALS: BP 114/84
[2017-07-22 20:00] VITALS: BP 117/80
[2017-07-22 21:39] VITALS: BP 117/80
[2017-07-22] MEDS: MONTELUKAST SODIUM 10 MG TAB PO SCH (22:03)
[2017-07-23] MEDS: HYDROmorphone HCL 2 MG/ML VL IV PRN ×7 (01:19→22:42)
[2017-07-23 03:24] VITALS: BP 117/80
[2017-07-23 05:00] VITALS: BP 117/68
[2017-07-23] MEDS: CARISOPRODOL 350 MG TAB PO SCH ×2 (05:19→13:57)
[2017-07-23] MEDS: ONDANSETRON HCL 4 MG/2 ML VIAL IV PRN ×3 (05:20→18:51)
[2017-07-23] MEDS: IPRATROPIUM BROM 0.5 MG/2.5ML INH SOL NEB SCH ×4 (06:49→18:00)
[2017-07-23] MEDS: ALBUTEROL SULF 2.5 MG/0.5ML(0.5%) NEB SOLN NEB SCH ×3 (06:50→18:00)
[2017-07-23] MEDS: SODIUM CHLORIDE 0.9% 1,000 ML IV SCH ×2 (07:58→20:25)
[2017-07-23 08:42] VITALS: BP 119/70
[2017-07-23] MEDS: PROMETHAZINE HCL 25 MG/ML 1ML IV PRN ×3 (08:45→22:42)
[2017-07-23] MEDS: FLUTICASONE PROP NASAL SPR 0.05 % (50MCG) 16GM EACHNOSTRI SCH (10:15)
[2017-07-23] MEDS: predniSONE 20 MG TAB PO SCH ×2 (10:16→21:35)
[2017-07-23] MEDS: DEXAMETHASONE 4 MG TAB PO SCH (10:16)
[2017-07-23] MEDS: LORATADINE 10 MG TAB PO SCH (10:16)
[2017-07-23] MEDS: oxyCODONE ER 10 MG TAB PO SCH ×2 (10:16→21:36)
[2017-07-23 12:58] VITALS: BP 120/67
[2017-07-23] MEDS: fentaNYL 75MCG/HR 75 MCG/HR PAT TD SCH (13:55)
[2017-07-23 16:26] VITALS: BP 114/69
[2017-07-23] MEDS: MONTELUKAST SODIUM 10 MG TAB PO SCH (21:36)
[2017-07-23 21:48] VITALS: BP 106/72
[2017-07-24] MEDS: ONDANSETRON HCL 4 MG/2 ML VIAL IV PRN ×4 (01:55→21:45)
[2017-07-24] MEDS: HYDROmorphone HCL 2 MG/ML VL IV PRN ×7 (01:55→21:45)
[2017-07-24 04:13] VITALS: BP 112/68
[2017-07-24] MEDS: PROMETHAZINE HCL 25 MG/ML 1ML IV PRN ×3 (05:12→18:30)
[2017-07-24 08:00] VITALS: BP 112/68
[2017-07-24] MEDS: IPRATROPIUM BROM 0.5 MG/2.5ML INH SOL NEB SCH ×4 (08:22→22:19)
[2017-07-24] MEDS: ALBUTEROL SULF 2.5 MG/0.5ML(0.5%) NEB SOLN NEB SCH ×3 (08:22→22:19)
[2017-07-24 09:00] VITALS: BP 116/74
[2017-07-24] MEDS: predniSONE 20 MG TAB PO SCH ×2 (10:00→21:44)
[2017-07-24] MEDS: oxyCODONE ER 10 MG TAB PO SCH ×2 (10:13→21:45)
[2017-07-24] MEDS: DEXAMETHASONE 4 MG TAB PO SCH (10:14)
[2017-07-24] MEDS: LORATADINE 10 MG TAB PO SCH (10:14)
[2017-07-24] MEDS: FLUTICASONE PROP NASAL SPR 0.05 % (50MCG) 16GM EACHNOSTRI SCH (10:15)
[2017-07-24] MEDS: SODIUM CHLORIDE 0.9% 1,000 ML IV SCH ×2 (10:16→23:57)
[2017-07-24 13:00] VITALS: BP 121/74
[2017-07-24 17:00] VITALS: BP 116/73
[2017-07-24] MEDS: MONTELUKAST SODIUM 10 MG TAB PO SCH (21:45)
[2017-07-24 22:00] VITALS: BP 112/67
[2017-07-25] MEDS: HYDROmorphone HCL 2 MG/ML VL IV PRN ×4 (00:05→23:47)
[2017-07-25] MEDS ORDERED: ONDANSETRON HCL 4 MG/2 ML VIAL ONE (00:28)
[2017-07-25] MEDS: DILTIAZEM HCL 25 MG/5 ML VIAL IV ONE ×2 (00:32→01:04)
[2017-07-25 00:35] VITALS: BP 114/69
[2017-07-25] MEDS ORDERED: ONDANSETRON HCL 4 MG/2 ML VIAL IM ONE (00:45)
[2017-07-25] MEDS ORDERED: DILTIAZEM HCL 25 MG/5 ML VIAL IV ONE (00:45)
[2017-07-25] MEDS ORDERED: ACETAMINOPHEN 325 MG TAB PO PRN (01:00)
[2017-07-25] MEDS: SIMETHICONE 80 MG CHEWABLE TABLET PO PRN (01:22)
[2017-07-25 01:28] LABS: Basophils # (auto) 0 uL; Basophils % (auto) 0.1 % (0.0-2.0); Eosinophils # (auto) 0 uL; Eosinophils % (auto) 1.5 % (0.0-7.0); Hematocrit 33.9 % (41.0-53.0); Hemoglobin 12.1 g/dL (13.5-17.5); Lymphocytes # (auto) 0.3 uL; Lymphocytes % (auto) 9.1 % (10.0-50.0); Mean Corpuscular Hemoglobin 31.3 pg (28.0-32.0); Mean Corpuscular Hgb Conc. 35.6 g/dL (32.0-36.0); Mean Corpuscular Volume 87.9 fL (80.0-100.0); Mean Platelet Volume 6.4 fL (6.9-10.8); Monocytes # (auto) 0.3 uL; Monocytes % (auto) 10.5 % (0.0-12.0); Neutrophils # (auto) 2.4 uL; Neutrophils % (auto) 78.8 % (37.0-80.0); Platelet Count (auto) 242 10^3/uL (140-450); Red Cell Distribution Width 14.5 % (11.8-14.3); White Blood Cell 3.1 10^3/uL (4.4-10.8)
[2017-07-25] MEDS: DOCUSATE SOD 100 MG CAP PO PRN (01:31)
[2017-07-25 01:38] LABS: Nucleated Red Blood Cells % 22.8 %
[2017-07-25] MEDS: LORazepam 2MG/ML-1ML VIAL IV PRN (02:47)
[2017-07-25 02:58] LABS: Albumin 2.5 g/dL (3.4-5.0); BUN/Creatinine Ratio 46.9; Bilirubin, Total 0.5 mg/dL (0.2-1.0); Calcium 8.8 mg/dL (8.5-10.1); Potassium 4.2 mmol/L (3.5-5.1); Total Protein 6.1 g/dL (6.4-8.2)
[2017-07-25 05:03] VITALS: BP 99/61
[2017-07-25] MEDS: ALBUTEROL SULF 2.5 MG/0.5ML(0.5%) NEB SOLN NEB SCH ×3 (07:05→22:12)
[2017-07-25] MEDS: IPRATROPIUM BROM 0.5 MG/2.5ML INH SOL NEB SCH ×3 (07:05→22:12)
[2017-07-25 08:07] VITALS: BP 102/63
[2017-07-25] MEDS: DEXAMETHASONE 4 MG TAB PO SCH (10:38)
[2017-07-25] MEDS: oxyCODONE ER 10 MG TAB PO SCH ×2 (10:38→21:05)
[2017-07-25] MEDS: LORATADINE 10 MG TAB PO SCH (10:38)
[2017-07-25] MEDS: predniSONE 20 MG TAB PO SCH ×2 (10:38→21:05)
[2017-07-25] MEDS: FLUTICASONE PROP NASAL SPR 0.05 % (50MCG) 16GM EACHNOSTRI SCH (10:39)
[2017-07-25] MEDS: SODIUM CHLORIDE 0.9% 1,000 ML IV SCH (11:41)
[2017-07-25 13:04] VITALS: BP 103/60
[2017-07-25] MEDS: ONDANSETRON HCL 4 MG/2 ML VIAL IV PRN ×3 (13:13→23:46)
[2017-07-25 16:35] VITALS: BP 118/68
[2017-07-25] MEDS: MONTELUKAST SODIUM 10 MG TAB PO SCH (21:05)
[2017-07-25] MEDS: PROMETHAZINE HCL 25 MG/ML 1ML IV PRN (21:06)
[2017-07-25 22:00] VITALS: BP 106/58
[2017-07-26] MEDS: SODIUM CHLORIDE 0.9% 1,000 ML IV SCH ×2 (01:45→15:13)
[2017-07-26] MEDS: ONDANSETRON HCL 4 MG/2 ML VIAL IV PRN ×5 (04:16→23:13)
[2017-07-26] MEDS: HYDROmorphone HCL 2 MG/ML VL IV PRN ×5 (04:16→23:13)
[2017-07-26 05:00] VITALS: BP 108/70
[2017-07-26] MEDS: ALBUTEROL SULF 2.5 MG/0.5ML(0.5%) NEB SOLN NEB SCH ×3 (07:29→22:24)
[2017-07-26] MEDS: IPRATROPIUM BROM 0.5 MG/2.5ML INH SOL NEB SCH ×3 (07:29→22:24)
[2017-07-26 08:03] VITALS: BP 119/77
[2017-07-26] MEDS: DEXAMETHASONE 4 MG TAB PO SCH (10:00)
[2017-07-26] MEDS: LORATADINE 10 MG TAB PO SCH (11:17)
[2017-07-26] MEDS: predniSONE 20 MG TAB PO SCH ×2 (11:18→21:53)
[2017-07-26] MEDS: oxyCODONE ER 10 MG TAB PO SCH ×2 (11:18→21:54)
[2017-07-26] MEDS: FLUTICASONE PROP NASAL SPR 0.05 % (50MCG) 16GM EACHNOSTRI SCH (11:20)
[2017-07-26] MEDS: fentaNYL 75MCG/HR 75 MCG/HR PAT TD SCH (12:49)
[2017-07-26] MEDS: DOCUSATE SOD 100 MG CAP PO PRN ×2 (12:49→21:54)
[2017-07-26 12:50] VITALS: BP 121/72
[2017-07-26] MEDS: PROMETHAZINE HCL 25 MG/ML 1ML IV PRN (14:25)
[2017-07-26 16:10] VITALS: BP 117/74
[2017-07-26 21:17] VITALS: BP 114/83
[2017-07-26] MEDS: MONTELUKAST SODIUM 10 MG TAB PO SCH (21:54)
[2017-07-27] MEDS: ONDANSETRON HCL 4 MG/2 ML VIAL IV PRN ×4 (03:33→18:50)
[2017-07-27] MEDS: SODIUM CHLORIDE 0.9% 1,000 ML IV SCH ×2 (03:33→18:05)
[2017-07-27] MEDS: HYDROmorphone HCL 2 MG/ML VL IV PRN ×4 (03:33→20:14)
[2017-07-27 04:54] VITALS: BP 104/71
[2017-07-27] MEDS: IPRATROPIUM BROM 0.5 MG/2.5ML INH SOL NEB SCH ×3 (06:33→22:09)
[2017-07-27] MEDS: ALBUTEROL SULF 2.5 MG/0.5ML(0.5%) NEB SOLN NEB SCH ×3 (06:33→22:09)
[2017-07-27 09:00] VITALS: BP 119/76
[2017-07-27] MEDS: OXYCODONE W/ ACETAMINOPHEN 5/325MG TABLET PO PRN ×2 (09:14→18:51)
[2017-07-27] MEDS: predniSONE 20 MG TAB PO SCH ×2 (09:16→21:12)
[2017-07-27] MEDS: DEXAMETHASONE 4 MG TAB PO SCH (09:16)
[2017-07-27] MEDS: LORATADINE 10 MG TAB PO SCH (09:16)
[2017-07-27] MEDS: FLUTICASONE PROP NASAL SPR 0.05 % (50MCG) 16GM EACHNOSTRI SCH (09:17)
[2017-07-27] MEDS: oxyCODONE ER 10 MG TAB PO SCH ×2 (10:00→21:12)
[2017-07-27] MEDS: DOCUSATE SOD 100 MG CAP PO PRN (11:34)
[2017-07-27 13:00] VITALS: BP 121/81
[2017-07-27] MEDS: SIMETHICONE 80 MG CHEWABLE TABLET PO PRN (13:49)
[2017-07-27 17:00] VITALS: BP 111/60
[2017-07-27] MEDS: MONTELUKAST SODIUM 10 MG TAB PO SCH (21:12)
[2017-07-27 22:00] VITALS: BP 121/78
[2017-07-28] MEDS: ONDANSETRON HCL 4 MG/2 ML VIAL IV PRN ×2 (00:14→04:26)
[2017-07-28] MEDS: HYDROmorphone HCL 2 MG/ML VL IV PRN ×2 (00:15→04:27)
[2017-07-28 05:00] VITALS: BP 112/75
== END 2017-07-28 06:10 | DRG 435 ==
LOC: ER 12:06 → WEST WING 12:07 → TELE-WESTW 19:49 → WEST WING 06-18 23:53 → TELE-WESTW 07-24 23:32
PROVIDERS: ADMIT Internal Medicine; ATTEND Internal Medicine
PROC: 0DJD8ZZ Inspection of Lower Intestinal Tract, Via Natural or Artificial Opening Endoscopic (ICD-10-PCS; principal; 2017-06-07 13:27)
PROC: 0DB68ZX Excision of Stomach, Via Natural or Artificial Opening Endoscopic, Diagnostic (ICD-10-PCS; 2017-06-07 13:27)
PROC: 0JH60XZ Insertion of Tunneled Vascular Access Device into Chest Subcutaneous Tissue and Fascia, Open Approach (ICD-10-PCS; 2017-06-15)
PROC: 05H633Z Insertion of Infusion Device into Left Subclavian Vein, Percutaneous Approach (ICD-10-PCS; 2017-06-15)
PROC: 3E04305 Introduction of Other Antineoplastic into Central Vein, Percutaneous Approach (ICD-10-PCS; 2017-06-17)
PROC: 3E04305 Introduction of Other Antineoplastic into Central Vein, Percutaneous Approach (ICD-10-PCS; 2017-07-09)
DX: C25.9 Malignant neoplasm of pancreas, unspecified (principal); E43 Unspecified severe protein-calorie malnutrition; K85.90 Acute pancreatitis without necrosis or infection, unspecified; J90 Pleural effusion, not elsewhere classified; C78.00 Secondary malignant neoplasm of unspecified lung; C78.7 Secondary malignant neoplasm of liver and intrahepatic bile duct; C79.51 Secondary malignant neoplasm of bone; E27.8 Other specified disorders of adrenal gland; M84.550A Pathological fracture in neoplastic disease, pelvis, initial encounter for fracture; E87.1 Hypo-osmolality and hyponatremia; S22.43XA Multiple fractures of ribs, bilateral, initial encounter for closed fracture; M48.07 Spinal stenosis, lumbosacral region; K64.8 Other hemorrhoids; M51.27 Other intervertebral disc displacement, lumbosacral region; W18.39XA Other fall on same level, initial encounter; K75.9 Inflammatory liver disease, unspecified; N50.9 Disorder of male genital organs, unspecified; K29.80 Duodenitis without bleeding; K29.70 Gastritis, unspecified, without bleeding; I10 Essential (primary) hypertension; J45.909 Unspecified asthma, uncomplicated; Z80.3 Family history of malignant neoplasm of breast; Z90.49 Acquired absence of other specified parts of digestive tract; Y93.89 Activity, other specified; Z82.49 Family history of ischemic heart disease and other diseases of the circulatory system; Y92.89 Other specified places as the place of occurrence of the external cause; Y99.8 Other external cause status; Z22.322 Carrier or suspected carrier of Methicillin resistant Staphylococcus aureus; Z68.21 Body mass index [BMI] 21.0-21.9, adult
CPT/HCPCS: 10022; 36415; 70551; 70553; 71010; 71020; 71250; 72040; 72148; 73502; 73564; 73718; 74176; 74177; 74183; 76705; 76870; 77012; 78306; 80048; 80053; 80061; 80074; 81001; 82105; 82150; 82270; 82378; 82962; 83605; 83690; 83735; 84154; 84484; 85007; 85025; 85027; 85610; 85730; 86301; 86703; 86706; 86803; 87040; 87081; 87086; 87340; 93005; 93971; 94640; 94761; 96365; 96375; C1788; J0690; J0696; J1100; J1642; J1885; J1956; J2001; J2250; J2405; J3490; J7060